=== PATIENT | male | born 1950 | race Caucasian/White ===

== ENCOUNTER 2017-11-08 10:20 | Inpatient (IN) | payer OTHER ==
[~2017-11-08] VITALS: Ht 167.6 cm; Wt 73.5 kg
[~2017-11-08 10:20] MED LIST: DIGOXIN125 MCG PO; METOPROLOL TART25 MG PO; OMEPRAZOLE40 MG PO; RANITIDINE HCL300 MG PO; XARELTO20 MG PO
[2017-11-08] MEDS ORDERED: TRAZODONE HCL50 MG PO (10:38)
[2017-11-08] MEDS ORDERED: METOPROLOL TARTRATE 50 MG TAB PO STA (10:41)
[2017-11-08] MEDS ORDERED: SODIUM CHLORIDE 0.9% 1000ML 1,000 ML IV STA ×2 (10:41)
[2017-11-08] MEDS ORDERED: FAMOTIDINE 20 MG/2 ML VIAL IV STA (10:41)
[2017-11-08] MEDS ORDERED: SODIUM CHLORIDE 0.9% 1000ML 1,000 ML IV ONE (10:45)
[2017-11-08] MEDS ORDERED: METOPROLOL TARTRATE INJ 1 MG/ML VIAL IV ONE ×2 (10:45)
[2017-11-08 10:57] LABS: BASOPHILS # (AUTO) 0.1 (0.0-0.1); BASOPHILS % 0.7 % (0.0-1.0); EOSINOPHILS # (AUTO) 0.1 (0.0-0.4); EOSINOPHILS % 1.3 % (0.0-6.0); HEMATOCRIT 49.4 % (38.2-49.6); HEMOGLOBIN 16.9 g/dL (14.0-18.0); LYMPHOCYTES # (AUTO) 3.6 (1.0-3.2); LYMPHOCYTES % 33.5 % (18.0-39.1); MEAN CORPUSCULAR HEMOGLOBIN 30.8 pg (28-32); MEAN CORPUSCULAR HGB CONC 34.2 g/dL (31-35); MEAN CORPUSCULAR VOLUME 90.1 fL (81-99); MONOCYTES # (AUTO) 0.8 (0.2-0.8); MONOCYTES % 7.2 % (4.4-11.3); NEUTROPHILS # (AUTO) 6.1 (2.1-6.9); PLATELET COUNT 277 x10e3/uL (140-360); RED BLOOD COUNT 5.48 x10e6/uL (4.3-5.7); RED CELL DISTRIBUTION WIDTH 12.1 % (11.7-14.4)
[2017-11-08 11:10] LABS: INR 1.37; PROTHROMBIN TIME 17.6 seconds (11.9-14.5)
--- NOTE | 2017-11-08 11:11 | Diagnostic Imaging Report ---
PROCEDURE: A single AP view of the chest. COMPARISON: Chest PA 05/23/2017. INDICATIONS: CHEST PAIN FINDINGS: Lines/tubes: None. Lungs: The lungs are well inflated and clear. There is no evidence of pneumonia or pulmonary edema. Pleura: There is no pleural effusion or pneumothorax. Heart and mediastinum: The heart and the mediastinum are unremarkable. Bones: No acute bony abnormality. Degenerative changes of the thoracic spine. IMPRESSION: No acute radiographic abnormality. Dictated by: Carlos Alberto Peck M.D. on 11/08/2017 at 11:20 Electronically approved by: Carlos Alberto Peck M.D. on 11/08/2017 at 11:20
[2017-11-08] MEDS ORDERED: AMIODARONE 900MG 500 ML IV ONE (11:12)
[2017-11-08] MEDS ORDERED: AMIODARONE HCL 900 MG in DEXTROSE 5 % 500ML BOTTLE 482 ML IV SCH (11:15)
[2017-11-08] MEDS ORDERED: AMIODARONE HCL 150 MG/100 ML BAG IV ONE (11:15)
[2017-11-08] MEDS ORDERED: DIGOXIN 0.125 MG TAB PO SCH (11:15)
[2017-11-08] MEDS ORDERED: MORPHINE SULFATE 2 MG/ML SYR IV PRN (11:15)
[2017-11-08] MEDS ORDERED: ONDANSETRON HCL INJ 2 MG/ML VIAL IV PRN (11:15)
[2017-11-08 11:18] LABS: ALANINE AMINOTRANSFERASE 18 IU/L (0-55); ALKALINE PHOSPHATASE 67 IU/L (40-150); ANION GAP 12.5 mmol/L (8-16); BLOOD UREA NITROGEN 14 mg/dL (7-26); BUN/CREATININE RATIO 12 (6-25); CALCIUM 9.3 mg/dL (8.4-10.2); CARBON DIOXIDE 27 mmol/L (22-29); CHLORIDE 104 mmol/L (98-107); CREATINE KINASE 66 IU/L (30-200); CREATININE, SERUM 1.15 mg/dL (0.72-1.25); EST GLOMERULAR FILTRATION RATE > 60 ML/MIN (60-); GLUCOSE 150 mg/dL (74-118); LIPASE 34 U/L (8-78); MAGNESIUM 2.1 MG/DL (1.3-2.1); POTASSIUM 3.5 mmol/L (3.5-5.1); SODIUM 140 mmol/L (136-145)
[2017-11-08 11:38] LABS: DIGOXIN 0.57 ng/mL (0.8-2.0); THYROID STIMULATING HORMONE 1.558 uIU/mL (0.350-4.940); TROPONIN I 0.004 ng/mL (0-0.300)
[2017-11-08] MEDS: FAMOTIDINE 20 MG/2 ML VIAL IV SCH ×2 (11:52→22:47)
[2017-11-08] MEDS: AMIODARONE HCL 900 MG in DEXTROSE 5 % 500ML BOTTLE 482 ML IV SCH (11:57)
[2017-11-08 12:17] LABS: BILIRUBIN,URINE NEGATIVE (NEGATIVE); CLARITY,URINE CLEAR (CLEAR); COLOR,URINE YELLOW (YELLOW); KETONES,URINE NEGATIVE (NEGATIVE); LEUKOCYTE ESTERASE ,URINE TRACE (NEGATIVE); NITRITE,URINE NEGATIVE (NEGATIVE); PROTEIN,URINE DIPSTICK NEGATIVE (NEGATIVE); URINE UROBILINOGEN 0.2 mg/dL (0.2 - 1)
[2017-11-08 12:55] LABS: EPITHELIAL CELLS,URINE RARE /LPF
[2017-11-08] MEDS: METOPROLOL TARTRATE 25 MG TAB PO SCH ×2 (13:02→22:47)
--- NOTE | 2017-11-08 15:57 | Consultation ---
DATE OF CONSULTATION: November 08, 2017 REASON FOR ADMISSION: Atrial fibrillation with rapid ventricular response. HISTORY OF PRESENT ILLNESS: This is a 66-year-old male who presented with chest pain. According to the patient, this morning he started having chest pain that started from the left side with no radiation. He took 2 nitroglycerin and it did not get better, and so he decided to come in for evaluation. He also complained of lightheadedness. In the ER, he was found to be in atrial fibrillation with rapid ventricular response and he was admitted for evaluation and started on amiodarone drip. He has a history of paroxysmal atrial fibrillation. He was anticoagulated with Xarelto. He denies any dizziness, any diaphoresis or headache. PAST MEDICAL HISTORY: Hypertension, atrial fibrillation, GERD. PAST SURGICAL HISTORY: Hernia repair, left ear surgery and cleft palate surgery. FAMILY HISTORY: Noncontributory. SOCIAL HISTORY: No smoking, no drinking. He lives at home alone by himself. MEDICATIONS: Metoprolol, omeprazole, digoxin and Xarelto. ALLERGIES: NO KNOWN DRUG ALLERGIES. REVIEW OF SYSTEMS: Negative except as mentioned above. Positive for atrial fibrillation, but he converted back to normal sinus rhythm. PHYSICAL EXAMINATION VITAL SIGNS: Temperature 98, heart rate 80, blood pressure 124/75. Oxygen saturation 98% on 3 liters nasal cannula. GENERAL: He is awake, alert and oriented x3. HEENT: Mucous membrane moist. NECK: Supple. LUNGS: Bilaterally clear to auscultation. CARDIOVASCULAR: Irregularly irregular. ABDOMEN: Soft. NEUROLOGIC: Intact. EXTREMITIES: With no edema. LABORATORY DATA: Sodium 140, potassium 3.5, chloride 104, CO2 of 27, BUN 14, creatinine 1.15, glucose 150, white blood cells 7.7, hemoglobin 16.9, hematocrit 49.4, platelets 277,000, PT 17.6, PTT 33.0. INR 1.37. IMPRESSION 1. Chest pain. 2. Atrial fibrillation with rapid ventricular response converted to normal sinus rhythm. 3. Hypertension. 4. Gastroesophageal reflux disease. PLAN: Will get an echo to assess the LV and the valve function. Will get serial cardiac enzymes. He is on amiodarone drip. Will continue the same. Will restart his home Xarelto back and metoprolol. Check his TSH. Replace his potassium. Further cardiac workup pending clinical course. Thank you for this consultation. Dictated by Karina Katz NP Job#: [id number]
[2017-11-08 21:00] VITALS: BP 129/66
[2017-11-08] MEDS: TRAZODONE HCL 50 MG TAB PO SCH (22:47)
[2017-11-08 22:48] LABS: CREATINE KINASE MB 1.7 ng/mL (0.00-5.00); TROPONIN I 0.008 ng/mL (0-0.300)
[2017-11-09] VITALS (8 sets, daily range): BP systolic 94–129; BP diastolic 52–83
[2017-11-09 06:44] LABS: BASOPHILS # (AUTO) 0.1 (0.0-0.1); BASOPHILS % 0.6 % (0.0-1.0); EOSINOPHILS # (AUTO) 0.2 (0.0-0.4); EOSINOPHILS % 1.9 % (0.0-6.0); HEMOGLOBIN 13.5 g/dL (14.0-18.0); LYMPHOCYTES # (AUTO) 1.9 (1.0-3.2); LYMPHOCYTES % 22.4 % (18.0-39.1); MEAN CORPUSCULAR HEMOGLOBIN 30.7 pg (28-32); MEAN CORPUSCULAR HGB CONC 33.8 g/dL (31-35); MEAN CORPUSCULAR VOLUME 90.9 fL (81-99); MONOCYTES # (AUTO) 0.7 (0.2-0.8); MONOCYTES % 8.6 % (4.4-11.3); NEUTROPHILS # (AUTO) 5.4 (2.1-6.9); PLATELET COUNT 217 x10e3/uL (140-360); RED CELL DISTRIBUTION WIDTH 12.3 % (11.7-14.4)
[2017-11-09 07:11] LABS: CREATINE KINASE MB 1.5 ng/mL (0.00-5.00); TROPONIN I 0.017 ng/mL (0-0.300)
[2017-11-09 07:15] LABS: ALANINE AMINOTRANSFERASE 12 IU/L (0-55); ALBUMIN 2.9 g/dL (3.5-5.0); ALKALINE PHOSPHATASE 48 IU/L (40-150); ANION GAP 9.9 mmol/L (8-16); BLOOD UREA NITROGEN 13 mg/dL (7-26); BUN/CREATININE RATIO 15 (6-25); CALCIUM 8.1 mg/dL (8.4-10.2); CARBON DIOXIDE 23 mmol/L (22-29); CHLORIDE 111 mmol/L (98-107); CHOL/HDL RATIO 3.9 (3.9-4.7); CHOLESTEROL 122 MD/DL (0-199); CREATININE, SERUM 0.85 mg/dL (0.72-1.25); EST GLOMERULAR FILTRATION RATE > 60 ML/MIN (60-); GLUCOSE 99 mg/dL (74-118); HDL CHOLESTEROL 31 MG/DL (40-60); LDL CHOLESTEROL 76 MG/DL (60-130); MAGNESIUM 1.8 MG/DL (1.3-2.1); POTASSIUM 3.9 mmol/L (3.5-5.1); SODIUM 140 mmol/L (136-145); TRIGLYCERIDES 75 MG/DL (0-149)
[2017-11-09] MEDS: RIVAROXABAN 20 MG TABLET PO SCH (09:36)
[2017-11-09] MEDS: PANTOPRAZOLE SOD 40 MG TABEC PO SCH (09:36)
[2017-11-09] MEDS: AMIODARONE HCL 900 MG in DEXTROSE 5 % 500ML BOTTLE 482 ML IV SCH ×2 (12:30→14:01)
[2017-11-09] MEDS ORDERED: FUROSEMIDE INJ 10 MG/ML 2 ML VIAL IV ONE (13:00)
[2017-11-09] MEDS ORDERED: POTASSIUM CHLORIDE 10 MEQ TABCR PO ONE (13:00)
--- NOTE | 2017-11-09 13:04 | History and Physical ---
CHIEF COMPLAINT: Rapid ventricular rate with atrial fibrillation. HISTORY OF PRESENT ILLNESS: The patient is a 66-year-old male, presented with chest pain and increase in heart rate. His heart rate was over 200. The patient had a history of atrial fibrillation in the past, but for some reason his heart rate was very rapid on this admission. He did miss some doses of digoxin, however. Otherwise the patient was stable. Symptoms of atrial fibrillation including palpitation and lightheadedness and some chest discomfort, but otherwise there was no acute cardiac event such as unstable angina. PAST MEDICAL HISTORY: Reflux, atrial fibrillation, hypertension. PAST SURGICAL HISTORY: Inguinal hernia repair, left ear surgery, and cleft palate surgery. SOCIAL HISTORY: Patient does not smoke. He lives at home by himself. No alcohol consumption. No recreational drug use. ALLERGIES: TO NO KNOWN ALLERGIES. HOME MEDICATIONS: List is reviewed. Metoprolol, omeprazole, digoxin, Xarelto. PHYSICAL EXAMINATION: VITAL SIGNS: Temperature is 98. Blood pressure 124/79. Pulse rate 68. Respiration 18. GENERAL: The patient is not in acute distress. He is awake. HEENT: Normocephalic, atraumatic. Sclerae anicteric. NECK: Supple grossly. PULMONARY: Diminished breath sounds without any wheezing. CARDIOVASCULAR: Regular rate and rhythm now after starting on amiodarone. EXTREMITIES: No cyanosis or edema. NEUROLOGIC: No focal deficit. LABORATORY: Sodium is 140, potassium 3.9, chloride 111, bicarb 23, BUN 13, creatinine 0.8. Glucose 99. WBC is 8.2. Hemoglobin 13.5. Hematocrit 40. Platelets are 217. IMPRESSION: 1. Atrial fibrillation with rapid ventricular rate. 2. Amiodarone loading dosing. PLAN: Continue with home medication. Lasix times one dose because the patient did receive some IV fluid. Continue with current medication. Beta husam. Resume Xarelto. Will monitor the patient closely. Job#: [id number]
[2017-11-09] MEDS: METOPROLOL TARTRATE 25 MG TAB PO SCH ×2 (14:05→23:49)
[2017-11-09] MEDS: TRAZODONE HCL 50 MG TAB PO SCH (19:39)
[2017-11-10 03:47] VITALS: BP 130/74
[2017-11-10 07:21] VITALS: BP 116/75
[2017-11-10 08:25] LABS: ANION GAP 11.8 mmol/L (8-16); BLOOD UREA NITROGEN 15 mg/dL (7-26); BUN/CREATININE RATIO 17 (6-25); CALCIUM 8.3 mg/dL (8.4-10.2); CARBON DIOXIDE 23 mmol/L (22-29); CHLORIDE 108 mmol/L (98-107); EST GLOMERULAR FILTRATION RATE > 60 ML/MIN (60-); GLUCOSE 158 mg/dL (74-118); POTASSIUM 3.8 mmol/L (3.5-5.1); SODIUM 139 mmol/L (136-145)
[2017-11-10] MEDS: RIVAROXABAN 20 MG TABLET PO SCH (08:56)
[2017-11-10] MEDS: PANTOPRAZOLE SOD 40 MG TABEC PO SCH (08:56)
== END 2017-11-10 10:15 | disposition home or self-care (01) | DRG 310 ==
LOC: ER 10:20 → ERHOLD 11:19 → IMCU 20:34
PROVIDERS: ADMIT Internal Medicine; ATTEND Internal Medicine
DX: I48.0 Paroxysmal atrial fibrillation (principal); I10 Essential (primary) hypertension; K21.9 Gastro-esophageal reflux disease without esophagitis; Z79.01 Long term (current) use of anticoagulants
CPT/HCPCS: 36415; 71010; 80048; 80053; 80061; 80162; 81001; 82550; 82553; 83690; 83735; 83880; 84443; 84484; 85025; 85610; 85730; 87086; 93005; 93306; 99284; J1940; J7030

== ENCOUNTER 2019-03-02 07:11 | Emergency (ER) | payer OTHER ==
[~2019-03-02] VITALS: Ht 167.6 cm; Wt 68.9 kg
[~2019-03-02 07:11] MED LIST changes: +TRAZODONE HCL50 MG PO
--- OUTSIDE RECORDS SUMMARY | 2019-03-02 07:13 | XMS REPORT ---
Author [facility] Address Unknown Phone Unavailable Care Team Providers Care Program Professional Name Role Phone BATOOL AMY Unavailable Unavailable Problems This patient has no known problems. Allergies, Adverse Reactions, Alerts This patient has no known allergies or adverse reactions. Medications This patient has no known medications. Results Test Description Test Time Test Comments Text Results Atomic Results Result Comments CHEST SINGLE (PORTABLE) [place] [address] Patient Name: LALO MARTINEZ III MR #: [id number] : 1950 Age/Sex: 66/M [id number] Req #: [id number] Adm Physician: Ordered by: AMY RENAE MD, MD Report #: [id number] Location: ER Room/Bed: Procedure: [id number] DX/CHEST SINGLE (PORTABLE) Exam Date: 11/08/17 Exam Time: 1045 REPORT STATUS: Signed PROCEDURE: A single AP view of the chest. COMPARISON: Chest PA 05/23/2017. INDICATIONS: CHEST PAIN FINDINGS: Lines/tubes: None. Lungs: The lungs are well inflated and clear. There is no evidence of pneumonia or pulmonary edema. Pleura: There is no pleural effusion or pneumothorax. Heart and mediastinum: The heart and the mediastinum are unremarkable. Bones: No acute bony abnormality. Degenerative changes of the thoracic spine. IMPRESSION: No acute radiographic abnormality. Dictated by: Julian Zurita M.D. on 11/08/2017 at 11:20 Electronically approved by: Julian Zurita M.D. on 11/08/2017 at 11:20 Dictated By: JULIAN ZURITA MD 112 Transcribed By: [place] on 11/08/171119 COPY TO: AMY RENAE
[2019-03-02] MEDS ORDERED: SODIUM CHLORIDE 0.9% 1000ML 1,000 ML IV STA (07:50)
[2019-03-02] MEDS ORDERED: METOPROLOL TARTRATE INJ 1 MG/ML VIAL ONE (08:06)
--- NOTE | 2019-03-02 08:06 | NUR ---
Patient noted to have converted into NSR and then back into a fib with rvr. Per Dr. Frost, hold off on IV metoprolol at this time.
[2019-03-02] MEDS ORDERED: DIGOXIN INJ 0.25 MG/ML 2 ML AMP ONE (08:13)
[2019-03-02 08:34] LABS: BASOPHILS # (AUTO) 0.1 (0.0-0.1); BASOPHILS % 0.4 % (0.0-1.0); EOSINOPHILS # (AUTO) 0.1 (0.0-0.4); EOSINOPHILS % 0.5 % (0.0-6.0); HEMATOCRIT 42.8 % (38.2-49.6); LYMPHOCYTES # (AUTO) 2.1 (1.0-3.2); LYMPHOCYTES % 16.5 % (18.0-39.1); MEAN CORPUSCULAR HEMOGLOBIN 29.7 pg (28-32); MEAN CORPUSCULAR HGB CONC 32.7 g/dL (31-35); MEAN CORPUSCULAR VOLUME 90.7 fL (81-99); MONOCYTES # (AUTO) 0.6 (0.2-0.8); MONOCYTES % 4.4 % (4.4-11.3); NEUTROPHILS # (AUTO) 9.8 (2.1-6.9); NEUTROPHILS % 77.9 % (38.7-80.0); PLATELET COUNT 272 x10e3/uL (140-360); RED BLOOD COUNT 4.72 x10e6/uL (4.3-5.7); RED CELL DISTRIBUTION WIDTH 12.2 % (11.7-14.4)
[2019-03-02 08:49] LABS: INR 0.96; PROTHROMBIN TIME 13.3 seconds (11.9-14.5)
[2019-03-02 08:50] LABS: PARTIAL THROMBOPLASTIN TIME 29.7 seconds (23.8-35.5)
--- NOTE | 2019-03-02 08:57 | Diagnostic Imaging Report ---
EXAMINATION: CHEST SINGLE (PORTABLE) INDICATION: Shortness of breath. COMPARISON: None FINDINGS: TUBES and LINES: None. LUNGS: Lungs are well inflated. Lungs are clear. There is no evidence of pneumonia or pulmonary edema. PLEURA: No pleural effusion or pneumothorax. HEART AND MEDIASTINUM: The cardiomediastinal silhouette is unremarkable. BONES AND SOFT TISSUES: No acute osseous abnormality. Partially seen possible posttraumatic deformity of the distal clavicle. UPPER ABDOMEN: No free air under the diaphragm. IMPRESSION: No acute radiographic abnormality. Signed by: Dr. Tasia Turpin MD on 03/02/2019 8:53 AM
[2019-03-02 08:58] LABS: ANION GAP 11.1 mmol/L (8-16); BLOOD UREA NITROGEN 17 mg/dL (7-26); BUN/CREATININE RATIO 18 (6-25); CALCIUM 8.9 mg/dL (8.4-10.2); CARBON DIOXIDE 23 mmol/L (22-29); CHLORIDE 106 mmol/L (98-107); CREATINE KINASE 76 IU/L (30-200); CREATININE, SERUM 0.93 mg/dL (0.72-1.25); EST GLOMERULAR FILTRATION RATE > 60 ML/MIN (60-); GLUCOSE 115 mg/dL (74-118); POTASSIUM 4.1 mmol/L (3.5-5.1); SODIUM 136 mmol/L (136-145)
[2019-03-02] MEDS ORDERED: METOPROLOL TARTRATE INJ 1 MG/ML VIAL IV ONE (09:00)
[2019-03-02] MEDS ORDERED: DIGOXIN INJ 0.25 MG/ML 2 ML AMP IV ONE ×2 (09:00)
[2019-03-02 10:07] LABS: CLARITY,URINE TURBID (CLEAR); COLOR,URINE RED (YELLOW); LEUKOCYTE ESTERASE ,URINE 1+ (NEGATIVE); NITRITE,URINE POSITIVE (NEGATIVE)
[2019-03-02 10:08] LABS: BILIRUBIN,URINE 3+ (NEGATIVE); KETONES,URINE 1+ (NEGATIVE); PROTEIN,URINE DIPSTICK 3+ (NEGATIVE); URINE UROBILINOGEN 4 mg/dL (0.2 - 1)
[2019-03-02 10:14] LABS: BACTERIA,URINE MODERATE /HPF; EPITHELIAL CELLS,URINE RARE /LPF; RBC,URINE >50 /HPF (0-5)
--- NOTE | 2019-03-02 10:19 | NUR ---
Patient noted ot have converted into NSR. EKG performed and MD notified.
[2019-03-02] MEDS ORDERED: SODIUM CHLORIDE 0.9% 1000ML 1,000 ML IV SCH (11:00)
[2019-03-02] MEDS ORDERED: SODIUM CHLORIDE 0.9% 250ML 250 ML ONE (11:06)
[2019-03-02] MEDS ORDERED: IOPAMIDOL 370 MG/ML 200 ML INFUS..BTL INJ ONE (11:06)
--- NOTE | 2019-03-02 11:09 | NUR ---
Walking rounds with LATESHA Dee. Patient in no distress at this time.
--- NOTE | 2019-03-02 11:09 | NUR ---
rec'd report in walking rounds with aba lock
[2019-03-02] MEDS ORDERED: CEFTRIAXONE SOD 1 GM/NS 50 ML 50 ML IV ONE (11:30)
--- NOTE | 2019-03-02 13:06 | Diagnostic Imaging Report ---
EXAM: CT abdomen and pelvis without and with contrast - Hematuria protocol INDICATION: Gross hematuria. COMPARISON: None. TECHNIQUE: Abdomen and pelvis were scanned in prone position without and with contrast. Delayed phase imaging obtained. Coronal and sagittal reformations were obtained. Hematuria protocol was performed. IV CONTRAST: 150 cc of Isovue-370. RADIATION DOSE: Total DLP: 917.4 mGy*cm Dose modulation, iterative reconstruction, and/or weight based adjustment of the mA/kV was utilized to reduce the radiation dose to as low as reasonably achievable. FINDINGS: LINES and TUBES: None. LOWER THORAX: Scattered bilateral lower lobe cysts. HEPATOBILIARY: Multiple hepatic cysts. Multiple other subcentimeter hepatic lesions are too small to characterize, but likely represent cysts. No evidence of solid mass. No biliary ductal dilation. GALLBLADDER: No radio-opaque stones or sludge. No wall thickening. SPLEEN: No splenomegaly. Calcified splenic granuloma. PANCREAS: No focal masses or ductal dilatation. ADRENALS: No adrenal nodules KIDNEYS/URETERS: Kidneys enhance symmetrically. No right hydronephrosis or solid mass. Subcentimeter right renal hypodensities are too small to characterize, but likely represent cysts. There is mild left hydroureter and left pelviectasis. Minimal left hydronephrosis. There is a 5 mm right mid pole nonobstructing stone and a 1 mm nonobstructing right lower pole stone. Possible 1 mm left mid pole nonobstructing stones on series 3, image 70. The majority of the ureters are opacified and demonstrate no specific evidence of urothelial lesion. GI TRACT: No abnormal distention, wall thickening, or evidence of bowel obstruction. Appendix is unremarkable. Small hiatal hernia. PELVIS: The bladder is distended. There is a large left sided bladder diverticulum, measuring up to 10.8 x 6.3 x 11.2 cm (AP x TV x SI). The diverticulum displaces the left ureter without evidence of high-grade obstruction. There is hyperdense contents representing hemorrhage versus lesion along the anterior aspect of the left lateral diverticulum, for example measuring up to 4.8 x 2.6 x 7.5 cm (series 3, image 130 and coronal series 401, image 33; 53 HU). The bladder is not well opacified on delayed images which limits evaluation for underlying mass. The prostate is enlarged, measuring up to 5.2 x 3.6 x 4.1 cm, estimated prostate volume based on ellipsoid calculation of 40 cc, although evaluation is limited on CT. LYMPH NODES: No lymphadenopathy. VESSELS: There are scattered atherosclerotic calcifications in the aorta and branch vessels. The bladder diverticulum and bladder result in compression of the left common iliac vein and bilateral external iliac veins. There are prominent internal iliac vein collaterals, for example on series 6, image 174. PERITONEUM / RETROPERITONEUM: No free air or fluid. BONES AND SOFT TISSUES: No acute bony findings or suspicious lytic or blastic lesions. Mild age-indeterminate anterior wedge compression deformity of the T11 vertebral body. IMPRESSION: Large left bladder diverticulum with hyperdense contents along the anterior aspect, which likely represent hemorrhagic products. However the bladder is not well opacified on delayed images, therefore underlying mass cannot be excluded. Suggest cystoscopy for further evaluation. The bladder diverticulum displaces the left ureter without evidence of high-grade obstruction. Mild left hydroureter and pelviectasis. Minimal left hydronephrosis. The bladder diverticulum and distended bladder result in compression of the left common iliac vein and bilateral external iliac veins. There are prominent internal iliac vein collaterals. Prostatomegaly. Suggest clinical correlation for bladder outlet obstruction. Nonobstructing bilateral renal stones, measuring up to 5 mm in the right mid pole. Mild age indeterminant anterior wedge compression deformity of the T11 vertebral body. Signed by: Dr. Tasia Turpin MD on 03/02/2019 1:03 PM
== END 2019-03-02 17:04 | disposition home or self-care (01) ==
LOC: ER 07:11
DX: R31.9 Hematuria, unspecified (principal); N30.91 Cystitis, unspecified with hematuria; I48.0 Paroxysmal atrial fibrillation; I10 Essential (primary) hypertension; I48.91 Unspecified atrial fibrillation
CPT/HCPCS: 36415; 71045; 74178; 80048; 81001; 82550; 82553; 83880; 84484; 85025; 85610; 85730; 87086; 93005; 99284; J0696; J1160; J7030; J7050; Q9967

== ENCOUNTER 2019-03-12 09:22 | Inpatient (IN) | payer OTHER ==
[~2019-03-12] VITALS: Ht 167.6 cm; Wt 71.7 kg
[2019-03-12] MEDS ORDERED: ADENOSINE 6MG/2ML 2 ML ONE (09:36)
[2019-03-12] MEDS ORDERED: SODIUM CHLORIDE 0.9% 1000ML 1,000 ML ONE (09:37)
[2019-03-12] MEDS ORDERED: ADENOSINE 6MG/2ML 3 ML ONE (09:42)
[2019-03-12] MEDS ORDERED: DILTIAZEM HCL VIAL 5 ML ONE (09:47)
[2019-03-12] MEDS ORDERED: DILTIAZEM HCL 5 MG/ML 5 ML VIAL IV STA (09:56)
[2019-03-12] MEDS ORDERED: SODIUM CHLORIDE 0.9% 1000ML 1,000 ML IV ONE (10:00)
[2019-03-12] MEDS ORDERED: ADENOSINE 6 MG/2 ML VIAL IV ONE (10:00)
--- NOTE | 2019-03-12 10:17 | Diagnostic Imaging Report ---
EXAMINATION: CHEST SINGLE (PORTABLE) INDICATION: Chest pain. COMPARISON: Chest radiograph 03/02/2019. FINDINGS: TUBES and LINES: None. LUNGS: Lungs are well inflated. Lungs are clear. There is no evidence of pneumonia or pulmonary edema. PLEURA: No pleural effusion or pneumothorax. HEART AND MEDIASTINUM: The cardiomediastinal silhouette is unremarkable. BONES AND SOFT TISSUES: No acute osseous abnormality. UPPER ABDOMEN: No free air under the diaphragm. IMPRESSION: No acute radiographic abnormality. Signed by: Dr. Tasia Turpin MD on 03/12/2019 10:14 AM
--- NOTE | 2019-03-12 10:24 | NUR ---
Patient states he feels much better at this time. NSR noted on monitor.
[2019-03-12 10:37] LABS: INR 0.89; PARTIAL THROMBOPLASTIN TIME 26.6 seconds (23.8-35.5); PROTHROMBIN TIME 12.5 seconds (11.9-14.5)
[2019-03-12 10:44] LABS: BASOPHILS # (AUTO) 0.1 (0.0-0.1); BASOPHILS % 0.7 % (0.0-1.0); EOSINOPHILS # (AUTO) 0.1 (0.0-0.4); EOSINOPHILS % 0.9 % (0.0-6.0); HEMATOCRIT 42.6 % (38.2-49.6); HEMOGLOBIN 13.7 g/dL (14.0-18.0); LYMPHOCYTES # (AUTO) 2.7 (1.0-3.2); LYMPHOCYTES % 26.4 % (18.0-39.1); MEAN CORPUSCULAR HEMOGLOBIN 29.6 pg (28-32); MEAN CORPUSCULAR HGB CONC 32.2 g/dL (31-35); MONOCYTES # (AUTO) 0.7 (0.2-0.8); MONOCYTES % 6.7 % (4.4-11.3); NEUTROPHILS # (AUTO) 6.7 (2.1-6.9); PLATELET COUNT 390 x10e3/uL (140-360); RED BLOOD COUNT 4.63 x10e6/uL (4.3-5.7); RED CELL DISTRIBUTION WIDTH 12.4 % (11.7-14.4)
[2019-03-12 10:49] LABS: ALANINE AMINOTRANSFERASE 14 IU/L (0-55); ALBUMIN 3.9 g/dL (3.5-5.0); ALBUMIN/GLOBULIN RATIO 1.1 (0.8-2.0); ALKALINE PHOSPHATASE 72 IU/L (40-150); ANION GAP 11.8 mmol/L (8-16); BLOOD UREA NITROGEN 14 mg/dL (7-26); BUN/CREATININE RATIO 12 (6-25); CALCIUM 9.5 mg/dL (8.4-10.2); CARBON DIOXIDE 24 mmol/L (22-29); CHLORIDE 107 mmol/L (98-107); CREATINE KINASE 81 IU/L (30-200); CREATININE, SERUM 1.14 mg/dL (0.72-1.25); EST GLOMERULAR FILTRATION RATE > 60 ML/MIN (60-); GLUCOSE 166 mg/dL (74-118); POTASSIUM 3.8 mmol/L (3.5-5.1); SODIUM 139 mmol/L (136-145)
[2019-03-12 11:26] LABS: BILIRUBIN,URINE NEGATIVE (NEGATIVE); CLARITY,URINE SL CLOUDY (CLEAR); COLOR,URINE YELLOW (YELLOW); KETONES,URINE NEGATIVE (NEGATIVE); LEUKOCYTE ESTERASE ,URINE 1+ (NEGATIVE); NITRITE,URINE NEGATIVE (NEGATIVE); PROTEIN,URINE DIPSTICK NEGATIVE (NEGATIVE); URINE UROBILINOGEN 0.2 mg/dL (0.2 - 1)
[2019-03-12 11:43] LABS: BACTERIA,URINE FEW /HPF; EPITHELIAL CELLS,URINE FEW /LPF
[2019-03-12] MEDS: CEFTRIAXONE SOD 1 GM/NS 50 ML 50 ML IV SCH (12:31)
[2019-03-12 13:08] LABS: CHOL/HDL RATIO 2.8 (3.9-4.7); CHOLESTEROL 169 MD/DL (0-199); HDL CHOLESTEROL 60 MG/DL (40-60); LDL CHOLESTEROL 87 MG/DL (60-130); TRIGLYCERIDES 110 MG/DL (0-149)
[2019-03-12 13:28] LABS: THYROID STIMULATING HORMONE 1.101 uIU/mL (0.350-4.940)
[2019-03-12 13:30] LABS: DIGOXIN < 0.30 ng/mL (0.8-2.0)
[2019-03-12 16:56] VITALS: BP 139/76
[2019-03-12 17:00] VITALS: BP 139/76
[2019-03-12 17:30] VITALS: BP 139/76
[2019-03-12] MEDS: METOPROLOL TARTRATE 25 MG TAB PO SCH (17:52)
[2019-03-12] MEDS ORDERED: DILTIAZEM HCL 5 MG/ML 5 ML VIAL IV ONE (18:15)
[2019-03-12] MEDS ORDERED: AMIODARONE HCL 150MG 100 ML IV ONE (18:30)
[2019-03-12] MEDS ORDERED: AMIODARONE HCL 900 MG in DEXTROSE 5% 500ML 500 ML IV SCH (18:30)
[2019-03-12] MEDS ORDERED: PNEUMOCOCCAL VACCINE POLYVALENT 23 MCG/0.5 ML VIAL IM SCH (18:33)
--- NOTE | 2019-03-12 18:54 | Consultation ---
DATE OF CONSULTATION: REQUESTING PHYSICIAN: Dr. Briggs. REASON FOR CONSULT: Atrial fibrillation. HISTORY OF PRESENT ILLNESS: Mr. Trimble is a 68-year-old gentleman with past medical history as listed below, presented to the office with complaints of palpitations, fatigue, chest pain, and shortness of breath. For the last few days, the patient was noted to be in AFib with RVR. His heart rate was in the 170s. He was weak and tired. His blood pressure was borderline low and so he was sent to the emergency room. In the ER, the patient's heart rate was in the 180s. He was initially given adenosine and his heart rate slowed down eventually, he converted to sinus rhythm. His heart rate now is in the 60s and 70s on the monitor. The patient has a history of paroxysmal atrial fibrillation. He states he feels a lot better. He was recently in the ER with AFib with RVR, was given IV digoxin and then sent home. He also had hematuria and stopped taking his Xarelto couple of weeks back. He saw Dr. Riggins and has been scheduled to have some urological procedure. Reportedly, he was also told to have kidney stones. He states that the chest pain is intermittent, lasts 5 to 10 minutes, and nonradiating. He does get short of breath at rest and minimal exertion. No abdominal pain, vomiting, or diarrhea. REVIEW OF SYMPTOMS: CONSTITUTIONAL: He has some fatigue and weakness. HEENT: No headache, blurring of vision, seizure, or syncope. CARDIOVASCULAR: He has had chest pain, dyspnea, and palpitations. RESPIRATORY: No cough, fever, or expectoration. GI: No abdominal pain, vomiting, or diarrhea. : Has had hematuria. ALLERGIES: METHYLPREDNISOLONE. PAST MEDICAL HISTORY: 1. History of paroxysmal atrial fibrillation. 2. History of hypertension. 3. History of GERD. PAST SURGICAL HISTORY: History of left ear surgery, history of cleft palate surgery, and history of hernia repair. SOCIAL HISTORY: He does not smoke or drink. FAMILY HISTORY: Noncontributory. PHYSICAL EXAMINATION: GENERAL: Moderately built and nourished gentleman. Awake, alert, not in any obvious distress. VITAL SIGNS: Heart rate currently is in the 60s on the monitor. Blood pressure 130/62, respiratory rate 18. HEENT: Atraumatic. NECK: No JVD, bruit, thyromegaly, or lymphadenopathy. CARDIOVASCULAR: First and second heart sounds heard. No murmurs, rubs, or gallops appreciated. CHEST: Decreased air entry at the bases. No adventitious sounds appreciated. ABDOMEN: Soft, nontender. EXTREMITIES: No edema. LABS: WBC is 10.3, hemoglobin is 13.7, hematocrit 42.6, and platelets are 390. Sodium is 139, potassium 3.8, chloride is 107, bicarb is 24, BUN is 14, creatinine 1.1, glucose 166, AST 17, ALT is 14, alkaline phosphatase 72. Troponin less than 0.001. BNP is 270. IMAGING: Chest x-ray shows no acute radiographic abnormality. EKG shows atrial fibrillation at 181 beats per minute. Normal axis. Normal intervals. ST depression in I, II, aVL, III, aVF, and V3 to V6. IMPRESSION: 1. Atrial fibrillation with rapid ventricular rate. 2. History of hypertension. 3. History of gastroesophageal reflux disease. 4. History of hematuria. 5. History of nephrolithiasis. PLAN: 1. The patient is converted to sinus rhythm. His heart rate is under control. 2. We will start him on beta-blockers. 3. The patient's H and H is okay. We will put him on Lovenox. We will hold off on Xarelto for now. Pending any surgical procedures and if no surgical procedure is planned, we will restart him back on his Xarelto. 4. Get echocardiogram to assess LV function and valvular function. 5. Check thyroid function test. 6. Further cardiac workup depending on clinical course. 7. Discussed my impression and plan of management with the patient and he understands. As always, I appreciate and thank you very much for referral. MD JOANNE Paulson/CHRISSYL /[id number]
[2019-03-12] MEDS ORDERED: AMIODARONE HCL 150 MG in DEXTROSE 5% 100ML 100 ML IV ONE (19:00)
[2019-03-12] MEDS ORDERED: AMIODARONE HCL 900 MG in DEXTROSE 5 % 500ML BOTTLE 500 ML IV SCH (19:00)
--- NOTE | 2019-03-12 19:15 | NUR ---
report given to oncoming nurse Deb.
--- NOTE | 2019-03-12 19:30 | NUR ---
report given to Arthur CHARLTON, pt will transfer to Room 197
--- NOTE | 2019-03-12 19:31 | NUR ---
per no urology procedure scheduled for 03/13/19 and does not need to be NPO from his stand point. Urology does not have plans to do any procedures until cardiology clears him and expecting this to be well over several weeks.
[2019-03-12 20:00] VITALS: BP 113/63
--- NOTE | 2019-03-12 20:17 | NUR ---
PT IS TRANSFERRED TO ICU .NO ACUTE DISTRESS NOTED . Addendum: 03/12/19 at 2130 by Kayla Childress RN WRONG
--- NOTE | 2019-03-12 20:30 | NUR ---
PT IS TRANSFERRED TO [facility] .NO ACUTE DISTRESS NOTED
[2019-03-12] MEDS ORDERED: ENOXAPARIN SOD INJ 60 MG/0.6 ML SYR SC SCH (21:00)
--- NOTE | 2019-03-12 21:00 | NUR ---
Patient transferred from [facility] floor, patient is alert and oriented x 4, patient is on room air, patient skin intact, patient walks, patient transferred to this unit to receive amiodorone, patient got to the unit and his heart rate was 66, and nsr, Dr. Norton was made aware and he stopped the intended drip.
[2019-03-13] VITALS (8 sets, daily range): BP systolic 108–135; BP diastolic 64–82
[2019-03-13 00:57] LABS: CREATINE KINASE MB 0.9 ng/mL (0-5.0)
[2019-03-13] MEDS ORDERED: AMIODARONE HCL 900 MG in DEXTROSE 5 % 500ML BOTTLE 500 ML IV ONE (01:00)
[2019-03-13 05:16] LABS: BASOPHILS # (AUTO) 0.1 (0.0-0.1); BASOPHILS % 0.8 % (0.0-1.0); EOSINOPHILS # (AUTO) 0.2 (0.0-0.4); EOSINOPHILS % 1.9 % (0.0-6.0); HEMATOCRIT 37.3 % (38.2-49.6); HEMOGLOBIN 12.3 g/dL (14.0-18.0); LYMPHOCYTES # (AUTO) 3.3 (1.0-3.2); LYMPHOCYTES % 31.5 % (18.0-39.1); MEAN CORPUSCULAR HEMOGLOBIN 29.9 pg (28-32); MEAN CORPUSCULAR VOLUME 90.8 fL (81-99); MONOCYTES % 9.5 % (4.4-11.3); NEUTROPHILS # (AUTO) 5.8 (2.1-6.9); PLATELET COUNT 312 x10e3/uL (140-360); RED BLOOD COUNT 4.11 x10e6/uL (4.3-5.7); RED CELL DISTRIBUTION WIDTH 12.5 % (11.7-14.4)
[2019-03-13 05:28] LABS: INR 1.01; PARTIAL THROMBOPLASTIN TIME 31.7 seconds (23.8-35.5); PROTHROMBIN TIME 13.8 seconds (11.9-14.5)
[2019-03-13 05:34] LABS: ANION GAP 14.1 mmol/L (8-16); BLOOD UREA NITROGEN 15 mg/dL (7-26); BUN/CREATININE RATIO 15 (6-25); CALCIUM 8.7 mg/dL (8.4-10.2); CARBON DIOXIDE 21 mmol/L (22-29); CHLORIDE 111 mmol/L (98-107); CREATININE, SERUM 0.97 mg/dL (0.72-1.25); EST GLOMERULAR FILTRATION RATE > 60 ML/MIN (60-); GLUCOSE 100 mg/dL (74-118); POTASSIUM 4.1 mmol/L (3.5-5.1); SODIUM 142 mmol/L (136-145)
--- NOTE | 2019-03-13 07:08 | NUR ---
patient endorsed to next shift for continuity of care.
[2019-03-13] MEDS: AMIODARONE HCL 200 MG TAB PO SCH ×2 (09:20→19:22)
[2019-03-13] MEDS: RIVAROXABAN 15 MG TABLET PO SCH (09:21)
[2019-03-13] MEDS: METOPROLOL TARTRATE 25 MG TAB PO SCH ×2 (09:22→19:21)
[2019-03-13] MEDS: CEFTRIAXONE SOD 1 GM/NS 50 ML 50 ML IV SCH (13:01)
[2019-03-13] MEDS ORDERED: CALCIUM CARBONATE 500 MG CHEWABLE TABS PO ONE (20:00)
--- NOTE | 2019-03-13 22:52 | Consultation ---
DATE OF CONSULTATION: 03/13/2019 Urologic consultation. Consultations called by Dr. Mazariegos. CHIEF UROLOGIC COMPLAINT/REASON FOR CONSULTATION: Hematuria. HISTORY OF PRESENT ILLNESS: The patient is admitted to the hospital with atrial fibrillation with rapid ventricular response. He has a history of gross hematuria and per report, the patient has seen Dr. Riggins in the past. Currently, there is no gross hematuria. The patient denied dysuria, denied frequency, denied urgency. PAST MEDICAL HISTORY: Atrial fibrillation, hypertension, gastroesophageal reflux disease, cleft palate, and hernia repairs. MEDICATIONS: Notable for Xarelto, metoprolol, Rocephin, and amiodarone. ALLERGIES: METHYLPREDNISOLONE. SOCIAL HISTORY: Denied smoking or drinking. FAMILY HISTORY: Denied urologic stones or malignancies. REVIEW OF SYSTEMS: Noncontributory other than problems mentioned above for 12 organ systems. PHYSICAL EXAMINATION: IN GENERAL: An elderly male currently, in no acute distress. VITAL SIGNS: Currently, he is afebrile with stable vital signs. HEENT: Sclerae anicteric. NECK: Supple. BACK: Without costovertebral angle tenderness bilaterally. ABDOMEN: Soft, nontender, and nondistended. There is no palpable mass. No palpable hernias. No palpable lymphadenopathy. GENITOURINARY: Normal male external genitalia. EXTREMITIES: No edema. NEUROLOGIC: Moves 4 extremities. PSYCH: Alert. Mood appropriate. SKIN: Intact. Normal color. PERTINENT LABORATORY DATA: CT scan revealing liver cysts, right kidney cyst, left-sided hydronephrosis. A 5 mm right middle pole stone, 1 mm right lower pole stone, 1 mm left middle pole stone, a very large 11 cm bladder diverticulum on the left side with hemorrhage in the cyst, BPH with measurements of 5.2 x 3.6 x 4.1 cm. Hemoglobin of 13, hematocrit 42, platelet count 390,000, and white blood cell count 10,300. Sodium 142, potassium 4.1, chloride 111, bicarb 21, BUN 15, creatinine 0.97, glucose 100. Urinalysis; 11-20 reds, 11-20 whites. IMPRESSION: 1. Gross hematuria. 2. BPH. 3. Hydronephrosis. 4. Renal cyst. 5. Bladder diverticulum. 6. Kidney stones. PLAN: The patient will need elective cystoscopy, which may safely be performed as an outpatient. Thank you for allowing us to participate in the care of patient. I will be happy to follow along with you. MD JULIANA Almaguer/MODL /[id number] cc: MD Kenyatta Smith MD
[2019-03-14] VITALS (8 sets, daily range): BP systolic 99–140; BP diastolic 63–90
[2019-03-14] MEDS: PANTOPRAZOLE SOD 40 MG TABEC PO SCH (05:19)
[2019-03-14] MEDS: RIVAROXABAN 15 MG TABLET PO SCH (10:03)
[2019-03-14] MEDS: AMIODARONE HCL 200 MG TAB PO SCH ×2 (10:03→17:22)
[2019-03-14] MEDS: METOPROLOL TARTRATE 25 MG TAB PO SCH ×2 (10:09→17:23)
--- NOTE | 2019-03-14 12:30 | NUR ---
Patient transferred to room 295 handoff report called to nurse Andersen RN, made aware urology will do cystoscopy/retrograde as outpatient procedure per Dr. Jeffy Zapata's note. Also made aware Rocephin 12:15 dose needs to be administered, nurse verbalized understanding.
[2019-03-14] MEDS ORDERED: SODIUM CHLORIDE 0.9% 250ML 250 ML ONE (12:35)
[2019-03-14] MEDS: CEFTRIAXONE SOD 1 GM/NS 50 ML 50 ML IV SCH (12:53)
--- NOTE | 2019-03-14 19:15 | NUR ---
Bedside rounds completed with morning nurse. Pt alert and orient to name. Lying in bed HOB 30 degrees. Denies pain at this time. Call arce within reach. Bed low and locked. Will continue to monitor.
[2019-03-15] VITALS (7 sets, daily range): BP systolic 101–142; BP diastolic 55–66
[2019-03-15] MEDS: PANTOPRAZOLE SOD 40 MG TABEC PO SCH (08:39)
[2019-03-15] MEDS: AMIODARONE HCL 200 MG TAB PO SCH ×2 (08:39→17:19)
[2019-03-15] MEDS: RIVAROXABAN 15 MG TABLET PO SCH (08:40)
[2019-03-15] MEDS: METOPROLOL TARTRATE 25 MG TAB PO SCH ×2 (08:40→17:20)
[2019-03-15] MEDS ORDERED: PNEUMOCOCCAL VACCINE POLYVALENT 23 MCG/0.5 ML VIAL IM ONE (12:30)
[2019-03-15] MEDS: CEFTRIAXONE SOD 1 GM/NS 50 ML 50 ML IV SCH (12:43)
[2019-03-15] MEDS ORDERED: TRIAMCINOLONE ACET 0.025% 15 GM CREAM TP SCH (18:00)
--- NOTE | 2019-03-15 19:20 | NUR ---
Completed bedside rounds with morning nurse. Pt alert and orient to name. Lying in bed. Denies pain at this time. Call arce within reach. Bed low and locked. Will continue to monitor.
[2019-03-16] VITALS: BP 111/60
[2019-03-16 04:00] VITALS: BP 118/67
--- NOTE | 2019-03-16 07:06 | NUR ---
RECEIVED PATIENT RESTING IN BED. NO ACUTE DISTRESS NOTED. CALL LIGHT WITHIN REACH. BED IN THE LOWEST POSITION.
[2019-03-16 07:15] VITALS: BP 131/65
[2019-03-16 07:59] VITALS: BP 131/65
[2019-03-16] MEDS: RIVAROXABAN 15 MG TABLET PO SCH (09:00)
[2019-03-16] MEDS: METOPROLOL TARTRATE 25 MG TAB PO SCH (09:00)
[2019-03-16] MEDS: AMIODARONE HCL 200 MG TAB PO SCH (09:00)
[2019-03-16] MEDS: PANTOPRAZOLE SOD 40 MG TABEC PO SCH (09:00)
[2019-03-16 11:30] VITALS: BP 140/65
--- NOTE | 2019-03-16 11:45 | NUR ---
RECEIVED DC ORDER FROM MD. PATIENT IS IN STABLE CONDITION. IV LINE TO RIGHT WRIST DCD WITH TIP INTACT, PRESSURE APPLIED TO SITE, NO BLEEDING NOTED. DISCHARGE TEACHING PROVIDED, PATIENT VERBALIZED UNDERSTANDING. ALL PERSONAL ITEMS AND DISCHARGE FOLDER ON HAND. PATIENT ACCOMPANIED TO PRIVATE AUTO VIA WHEELCHAIR BY STAFF.
--- NOTE | 2019-03-16 18:09 | NUR ---
PT DC'ING HOME TODAY. MET W THE PT AND SPOUSE AT THE BEDSIDE. IMM LETTER EXPLAINED; VERBALIZED UNDERSTANDING. IMM LETTER SIGNED BY PT. COPY TO PT AND COPY TO CHART.
--- NOTE | 2019-03-17 05:07 | Discharge Summary ---
PRIMARY CARE PHYSICIAN: Dr. Kenyatta Garcia. CONSULTANTS: 1. Dr. Jaron Fair. 2. Dr. Jeffy Riggins. FINAL DIAGNOSES: 1. Atrial fibrillation with rapid ventricular rate, response. 2. Urinary tract infection. SUMMARY: This is a 68-year-old male with rapid atrial fibrillation. The patient did not take his amiodarone for over a month because he ran out of prescription. The patient came in with rapid ventricular rate, response. He was placed on amiodarone drip and subsequently loading. The patient is stable now. He is doing much better. With respect to his urinary tract infection, the patient has received Rocephin. He is doing well. The patient will be discharged home today. INSTRUCTIONS: As follows. 1. Resume home medication. 2. Refill amiodarone 200 mg twice a day. 3. Keflex 500 mg three times a day for five days. The patient will follow up with his family physician, Dr. Kenyatta Garcia, and his laceworker now, Dr. Diane Churchill in approximately 1 to 2 weeks. He will follow up with Dr. Jeffy Riggins for outpatient, elective schedule for cystoscopy. The patient is stable discharged home today. MD LOKI Smith/DIANNE /[id number]
== END 2019-03-16 11:50 | disposition home or self-care (01) | DRG 309 ==
LOC: ER 09:22 → ERHOLD 11:22 → MED/SURG3 16:43 → IMCU 20:26 → MED/SURG3 03-14 12:27
PROVIDERS: ADMIT Internal Medicine; ATTEND Internal Medicine
DX: I48.91 Unspecified atrial fibrillation (principal); N39.0 Urinary tract infection, site not specified; Z79.01 Long term (current) use of anticoagulants; I10 Essential (primary) hypertension; K21.9 Gastro-esophageal reflux disease without esophagitis; N40.0 Benign prostatic hyperplasia without lower urinary tract symptoms; N28.1 Cyst of kidney, acquired
CPT/HCPCS: 36415; 71045; 80048; 80053; 80061; 80162; 81001; 82550; 82553; 83880; 84443; 84484; 85025; 85610; 85730; 87086; 90732; 93005; 93306; 99284; J0153; J0696; J1650; J7030; J7050

== ENCOUNTER 2019-07-12 00:20 | Emergency (ER) | payer OTHER ==
[~2019-07-12] VITALS: Ht 167.6 cm; Wt 71.7 kg
[2019-07-12 00:45] LABS: BASOPHILS # (AUTO) 0.1 (0.0-0.1); BASOPHILS % 0.7 % (0.0-1.0); EOSINOPHILS # (AUTO) 0.3 (0.0-0.4); EOSINOPHILS % 2.7 % (0.0-6.0); HEMATOCRIT 40.9 % (38.2-49.6); HEMOGLOBIN 12.7 g/dL (14.0-18.0); LYMPHOCYTES # (AUTO) 3.2 (1.0-3.2); LYMPHOCYTES % 28.2 % (18.0-39.1); MEAN CORPUSCULAR HEMOGLOBIN 25.3 pg (28-32); MEAN CORPUSCULAR HGB CONC 31.1 g/dL (31-35); MEAN CORPUSCULAR VOLUME 81.6 fL (81-99); MONOCYTES # (AUTO) 0.9 (0.2-0.8); MONOCYTES % 7.6 % (4.4-11.3); NEUTROPHILS # (AUTO) 6.8 (2.1-6.9); NEUTROPHILS % 60.3 % (38.7-80.0); PLATELET COUNT 304 x10e3/uL (140-360); RED BLOOD COUNT 5.01 x10e6/uL (4.3-5.7); RED CELL DISTRIBUTION WIDTH 15.5 % (11.7-14.4)
[2019-07-12 00:58] LABS: PROTHROMBIN TIME 13.7 seconds (11.9-14.5)
[2019-07-12 00:59] LABS: PARTIAL THROMBOPLASTIN TIME 29.5 seconds (23.8-35.5)
[2019-07-12 01:08] LABS: ALBUMIN 3.6 g/dL (3.5-5.0); BILIRUBIN,URINE MODERATE (NEGATIVE); CALCIUM 9.1 mg/dL (8.4-10.2); CLARITY,URINE CLOUDY (CLEAR); COLOR,URINE RED (YELLOW); KETONES,URINE TRACE (NEGATIVE); LEUKOCYTE ESTERASE ,URINE MODERATE (NEGATIVE); NITRITE,URINE POSITIVE (NEGATIVE); POTASSIUM 3.8 mmol/L (3.5-5.1); URINE UROBILINOGEN 2 mg/dL (0.2 - 1)
[2019-07-12 01:12] LABS: PROTEIN,URINE DIPSTICK 3+ (NEGATIVE)
[2019-07-12 01:13] LABS: BACTERIA,URINE MODERATE /HPF; EPITHELIAL CELLS,URINE FEW /LPF; RBC,URINE >50 /HPF (0-5); WBC,URINE (MAN) >50 /HPF (0-5)
[2019-07-12] MEDS: CEFTRIAXONE SOD 1 GM/NS 50 ML 50 ML IV ONE (01:27)
[2019-07-12 01:33] LABS: ANION GAP 12.8 mmol/L (8-16); CREATININE, SERUM 1.24 mg/dL (0.72-1.25)
[2019-07-12 01:49] VITALS: BP 144/69
== END 2019-07-12 01:58 | disposition home or self-care (01) ==
LOC: ER 00:20
DX: N30.01 Acute cystitis with hematuria (principal); I48.91 Unspecified atrial fibrillation; Z79.01 Long term (current) use of anticoagulants
CPT/HCPCS: 36415; 80053; 81001; 85025; 85610; 85730; 87086; 99283; J0696

== ENCOUNTER → 2019-08-21 | Day surgery (SDC) | payer MEDICARE, OTHER ==
[2019-08-20 13:34] LABS: BASOPHILS # (AUTO) 0.1 (0.0-0.1); BASOPHILS % 0.6 % (0.0-1.0); EOSINOPHILS # (AUTO) 0.1 (0.0-0.4); EOSINOPHILS % 1.3 % (0.0-6.0); HEMATOCRIT 38.8 % (38.2-49.6); HEMOGLOBIN 11.8 g/dL (14.0-18.0); LYMPHOCYTES # (AUTO) 2.2 (1.0-3.2); LYMPHOCYTES % 25.6 % (18.0-39.1); MEAN CORPUSCULAR HEMOGLOBIN 25.1 pg (28-32); MEAN CORPUSCULAR HGB CONC 30.4 g/dL (31-35); MEAN CORPUSCULAR VOLUME 82.4 fL (81-99); MONOCYTES # (AUTO) 0.7 (0.2-0.8); MONOCYTES % 8.7 % (4.4-11.3); NEUTROPHILS # (AUTO) 5.4 (2.1-6.9); NEUTROPHILS % 63.6 % (38.7-80.0); PLATELET COUNT 322 x10e3/uL (140-360); RED BLOOD COUNT 4.71 x10e6/uL (4.3-5.7); RED CELL DISTRIBUTION WIDTH 15.2 % (11.7-14.4)
[~2019-08-21] MED LIST changes: +AMIODARONE HCL200 MG PO; +B&O 60MG R/S 60 MG SUPP PR ONE; +CEFTRIAXONE SOD 1 GM/NS 50 ML 50 ML IV ONE; +IOPAMIDOL 300MG/ML 50ML INFUS..BTL IV ONE; +IOTHALAMATE MEGLUMINE 17.20% 250 ML BTL ONE; +LIDOCAINE HCL 2% LOCAL INJ 5 ML SDV VIAL INJ ONE; +LOSARTAN POTASS25 MG PO; +PROPOFOL IV EMULSION 10 MG/ML 20 ML VIAL ONE; +SEVOFLURANE INHAL SOLN 250 ML PEN BTL ONE; +TRIAMCINOLONE A15 G1 TOP
[2019-08-21 16:00] VITALS: BP 148/72
--- NOTE | 2019-09-22 02:54 | Operative Report ---
DATE OF PROCEDURE: 08/21/2019 SURGEON: Jeffy Riggins MD PREOPERATIVE DIAGNOSES: 1. Urinary tract infections. 2. Bilateral nephrolithiasis. POSTOPERATIVE DIAGNOSES: 1. Urinary tract infections. 2. Bilateral nephrolithiasis. 3. Bladder diverticulum. OPERATIONS PERFORMED: 1. Cystourethroscopy with bilateral ureteral catheterization and retrograde ureteropyelography. 2. Interpretation of retrograde ureteropyelography. 3. Supervision of fluoroscopy, no radiologist present. 4. Cystography and interpretation, no radiologist present (surgery procedure performed to evaluate the bladder diverticulum). ANESTHESIA: General. COMPLICATIONS: None. CLINICAL SUMMARY: Lowell Trimble III, is a 68-year-old man with urinary tract infections and bilateral nephrolithiasis. He was brought for evaluation. He is aware of the risks of bleeding, infection, injury to adjacent structures, need for additional procedures and elected to proceed. OPERATIVE PROCEDURE IN DETAIL: Informed consent was verified. Lowell Trimble III, was properly identified, taken to the operating room, placed on the cystoscopy table in supine position. Anesthesia was uneventfully begun. The patient was then carefully, gently repositioned in dorsal lithotomy position with all pressure points well padded. His genitalia were prepared and draped in usual sterile fashion. The cystoscope sheath with the visual obturator in place was atraumatically inserted into the patient's urethra, it was guided unremarkable distal urethra through some wide caliber, not clinically significant stricture just at the bulbar region. We then entered the sphincteric region, and once into the prostate bed, which was significant for bilobar prostatic hypertrophy with visual obstruction. We entered the patient's bladder and performed panendoscopy of the bladder. There was an open-mouth diverticulum that was rather large just medial to the left ureteral orifice. There were no suspicious lesions and there were no tumors, there were no stones. The cystoscope sheath was inserted into this diverticulum and contrast was injected. The diverticulum was virtually the size of the bladder itself. It distorted the left ureter and pushed over laterally and caused a tortuous course to the ureter. Retrograde pyelograms on the right-hand side revealed normal upper tracts without any filling defects. No hydronephrosis, and I could not visualize the stones well. Nevertheless, unobstructed drainage was observed bilaterally fluoroscopically. Interpretation of retrograde ureteropyelography contrast was instilled in retrograde fashion bilaterally. There were no tumors and no suspicious lesions. It is difficult to visualize the kidney stones on today's study. The left ureter was distorted and displaced laterally. The right ureter was unremarkable. The collecting system on the left hand side was bifid in nature. Interpretation of cystography contrast was instilled in a retrograde fashion via the cystoscope sheath. The patient had a good capacity bladder. The bladder diverticulum off the left lateral wall was virtually the size of the bladder. No filling defects were identified. The bladder wall and diverticulum wall were relatively smooth. The patient's bladder was drained. Belladonna and opium suppositories were placed revealing a large prostate, smooth and non-fluctuant without any nodules. The patient was then uneventfully reversed from anesthesia and taken to recovery room in stable condition. No complications to the procedure he tolerated the procedure well. Plans will be to return the patient to the operating room following cardiac clearance for cystoscopy, bilateral placement of stents, bladder diverticulectomy and retropubic prostatectomy. Jeffy Riggins MD [place]/MODL /[id number] cc: Kenyatta Garcia MD
== END | disposition home or self-care (01) ==
LOC: OR 09:52
PROVIDERS: ATTEND Urology
DX: N40.1 Benign prostatic hyperplasia with lower urinary tract symptoms (principal); N13.30 Unspecified hydronephrosis; N39.41 Urge incontinence; R35.1 Nocturia; N32.3 Diverticulum of bladder; R39.12 Poor urinary stream; N20.0 Calculus of kidney; N39.0 Urinary tract infection, site not specified; N28.1 Cyst of kidney, acquired; R31.0 Gross hematuria; R31.29 Other microscopic hematuria; Z88.8 Allergy status to other drugs, medicaments and biological substances; K21.9 Gastro-esophageal reflux disease without esophagitis; I10 Essential (primary) hypertension; F41.9 Anxiety disorder, unspecified; M54.2 Cervicalgia; M54.9 Dorsalgia, unspecified; Z01.812 Encounter for preprocedural laboratory examination; N13.8 Other obstructive and reflux uropathy
CPT/HCPCS: 36415; 51600; 74420; 74430; 85025; 87086; C1758; J0696; J2001; J2704; Q9958; Q9967

== ENCOUNTER 2019-10-12 10:45 | Inpatient (IN) | payer MEDICARE ==
[2019-10-09 10:43] LABS: BASOPHILS # (AUTO) 0.1 (0.0-0.1); BASOPHILS % 0.7 % (0.0-1.0); EOSINOPHILS # (AUTO) 0.1 (0.0-0.4); EOSINOPHILS % 0.8 % (0.0-6.0); HEMATOCRIT 42.3 % (38.2-49.6); HEMOGLOBIN 12.6 g/dL (14.0-18.0); LYMPHOCYTES # (AUTO) 1.9 (1.0-3.2); LYMPHOCYTES % 21.6 % (18.0-39.1); MEAN CORPUSCULAR HEMOGLOBIN 25.6 pg (28-32); MEAN CORPUSCULAR HGB CONC 29.8 g/dL (31-35); MEAN CORPUSCULAR VOLUME 85.8 fL (81-99); MONOCYTES # (AUTO) 0.7 (0.2-0.8); MONOCYTES % 7.8 % (4.4-11.3); NEUTROPHILS # (AUTO) 6.1 (2.1-6.9); NEUTROPHILS % 68.9 % (38.7-80.0); PLATELET COUNT 199 x10e3/uL (140-360); RED BLOOD COUNT 4.93 x10e6/uL (4.3-5.7)
[~2019-10-12] VITALS: Ht 167.6 cm; Wt 68.9 kg
[~2019-10-12 10:45] MED LIST changes: -B&O 60MG R/S 60 MG SUPP PR ONE; -CEFTRIAXONE SOD 1 GM/NS 50 ML 50 ML IV ONE; -IOPAMIDOL 300MG/ML 50ML INFUS..BTL IV ONE; -IOTHALAMATE MEGLUMINE 17.20% 250 ML BTL ONE; -LIDOCAINE HCL 2% LOCAL INJ 5 ML SDV VIAL INJ ONE; -PROPOFOL IV EMULSION 10 MG/ML 20 ML VIAL ONE; -SEVOFLURANE INHAL SOLN 250 ML PEN BTL ONE
[2019-10-12] MEDS ORDERED: PIPER-TAZ 3.375 GM 50 ML ONE ×2 (11:31→12:53)
[2019-10-12] MEDS ORDERED: LEVOFLOXACIN 500MG/D5W 100ML 100 ML IV ONE (11:31)
[2019-10-12] MEDS ORDERED: IOPAMIDOL 300MG/ML 50ML INFUS..BTL IV ONE (12:56)
[2019-10-12] MEDS ORDERED: IBUPROFEN 800MG/ 250ML 250 ML IV ONE (13:55)
[2019-10-12] MEDS ORDERED: SUGAMMADEX SODIUM 200 MG/2 ML VIAL IV ONE (14:50)
[2019-10-12] MEDS ORDERED: ONDANSETRON HCL INJ 2MG/ML 2ML 2 MG/ML VIAL IV PRN (15:15)
[2019-10-12] MEDS ORDERED: NALOXONE HCL INJ 0.4 MG/ML AMP IV PRN (15:15)
[2019-10-12] MEDS ORDERED: MORPHINE SULFATE 1 MG/ML 30ML PCA IV PRN (15:15)
[2019-10-12] MEDS: SODIUM CHLORIDE 0.9% 250ML IRRIG IR SCH ×2 (15:15→21:12)
[2019-10-12] MEDS ORDERED: MORPHINE SULFATE 1 MG/ML 30ML PCA ONE (15:59)
[2019-10-12] MEDS ORDERED: ONDANSETRON HCL INJ 2MG/ML 2ML 2 MG/ML VIAL ONE ×2 (16:04→18:59)
[2019-10-12] MEDS ORDERED: MORPHINE SULFATE INJ 4 MG/ML INJ 1ML ONE (16:04)
[2019-10-12 16:30] VITALS: BP 145/74
[2019-10-12 18:13] VITALS: BP 145/74
[2019-10-12 18:16] VITALS: BP 145/74
[2019-10-12] MEDS ORDERED: DEXAMETHASONE SOD PHOS INJ 4 MG/ML VIAL ONE (18:59)
[2019-10-12] MEDS ORDERED: PROPOFOL IV EMULSION 10 MG/ML 20 ML VIAL ONE (18:59)
[2019-10-12] MEDS ORDERED: ROCURONIUM BROMIDE 10 MG/ML 5ML VIAL ONE (18:59)
[2019-10-12] MEDS ORDERED: SEVOFLURANE INHAL SOLN 250 ML PEN BTL ONE (18:59)
[2019-10-12] MEDS ORDERED: LIDOCAINE HCL 2% LOCAL INJ 5 ML SDV VIAL INJ ONE (18:59)
--- NOTE | 2019-10-12 19:00 | NUR ---
RECEIVED PATIENT IN BEDSIDE REPORT. PATIENT RESTING IN BED AT THIS TIME. FUNERAL SALES MANAGER PUMP CHECKS DONE WITH RNS. PAIN REPORTED /. NG TUBE TO R NARE WITH LOW CONTINUOUS SUCTION, RED-TINGED FLUID NOTED. DYKES DRAINING TO GRAVITY, CLEAR AND BLOODY, NO CLOTS NOTED. YOLIS HOSE AND SCD PUMPS ON AND ACTIVE. TELE BOX#26, CURRENTLY RUNNING SB AT 57. WILL CONTINUE TO MONITOR CLOSELY. BED LOCKED IN LOWEST POSITION, SIDE RAILS UPX2, CALL LIGHT IN REACH.
[2019-10-12] MEDS ORDERED: FENTANYL CITRATE/PF 100MCG/2 ML INJ ONE (19:23)
[2019-10-12 19:46] VITALS: BP 128/66
[2019-10-12 20:00] VITALS: BP 128/66
[2019-10-12] MEDS: CEFAZOLIN SOD 1 GM/NS 50ML 50 ML IV SCH (21:12)
[2019-10-13] VITALS (8 sets, daily range): BP systolic 112–137; BP diastolic 55–65
[2019-10-13] MEDS: SODIUM CHLORIDE 0.9% 250ML IRRIG IR SCH ×3 (00:42→07:51)
[2019-10-13] MEDS ORDERED: LACTATED RINGER'S 1,000 ML ONE (02:33)
[2019-10-13] MEDS: CEFAZOLIN SOD 1 GM/NS 50ML 50 ML IV SCH ×3 (05:51→21:28)
[2019-10-13 06:16] LABS: BASOPHILS % 0.1 % (0.0-1.0); HEMATOCRIT 34.2 % (38.2-49.6); HEMOGLOBIN 10.4 g/dL (14.0-18.0); LYMPHOCYTES # (AUTO) 1.2 (1.0-3.2); MEAN CORPUSCULAR HEMOGLOBIN 25.3 pg (28-32); MEAN CORPUSCULAR HGB CONC 30.4 g/dL (31-35); MEAN CORPUSCULAR VOLUME 83.2 fL (81-99); MONOCYTES # (AUTO) 1.2 (0.2-0.8); MONOCYTES % 8.2 % (4.4-11.3); NEUTROPHILS # (AUTO) 12.2 (2.1-6.9); NEUTROPHILS % 83.2 % (38.7-80.0); PLATELET COUNT 243 x10e3/uL (140-360); RED BLOOD COUNT 4.11 x10e6/uL (4.3-5.7); RED CELL DISTRIBUTION WIDTH 17.7 % (11.7-14.4)
[2019-10-13 06:36] LABS: ANION GAP 11.2 mmol/L (8-16); BLOOD UREA NITROGEN 17 mg/dL (7-26); BUN/CREATININE RATIO 18 (6-25); CALCIUM 7.9 mg/dL (8.4-10.2); CARBON DIOXIDE 21 mmol/L (22-29); CHLORIDE 109 mmol/L (98-107); CREATININE, SERUM 0.96 mg/dL (0.72-1.25); EST GLOMERULAR FILTRATION RATE > 60 ML/MIN (60-); GLUCOSE 90 mg/dL (74-118); POTASSIUM 4.2 mmol/L (3.5-5.1); SODIUM 137 mmol/L (136-145)
--- NOTE | 2019-10-13 07:00 | NUR ---
RECEIVED PATIENT AWAKE RESTING IN BED NO S/S OF DISTRESS. BED LOW, WHEELS LOCKED, SIDE RAILS X2. CALL LIGHT IN REACH WILL CONTINUE TO MONITOR PATIENT.
[2019-10-13] MEDS: D5.45%NS/KCL 20MEQ 1,000 ML IV SCH ×2 (07:15→07:51)
[2019-10-13] MEDS ORDERED: METOPROLOL TARTRATE INJ 1 MG/ML VIAL IV PRN (08:45)
[2019-10-13] MEDS ORDERED: MORPHINE SULFATE 1 MG/ML 30ML PCA IV PRN (09:15)
--- NOTE | 2019-10-13 09:30 | NUR ---
REMOVED PATIENTS NGT. TUBE INTACT ON REMOVAL. PATIENT TOLERATED WELL.
[2019-10-13] MEDS: FAMOTIDINE 20 MG/2 ML VIAL IV SCH ×2 (09:41→17:22)
[2019-10-13] MEDS: SODIUM CHLORIDE 0.9% 1000ML 1,000 ML IV SCH ×2 (09:42→19:13)
--- NOTE | 2019-10-13 10:22 | History and Physical ---
CHIEF COMPLAINT: The patient is status post bilateral ureteral stent placement and complicated urinary bladder diverticulectomy. Procedure was done by Dr. Jeffy Riggins. HISTORY OF PRESENT ILLNESS: This is a 68-year-old male with history of recurrent urinary tract infection with urinary bladder diverticulum and bilateral nephrolithiasis. The patient is status post cystoscopy with bilateral stent placement and urinary bladder diverticulectomy. The patient had a complicated procedure. The patient had an NG tube in place. The patient is otherwise stable at this time. Per the significant finding on the operative note, the patient's bladder was too thin, prostatectomy at this time. The patient is otherwise stable now. Pain is under control. He is comfortable. 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 Urinary bladder diverticulum. The patient is status post cystoscopy and bilateral ureteral stent placement and bladder diverticulectomy. SOCIAL HISTORY: The patient does not smoke or use alcohol. No recreational drugs. ALLERGIES: METHYLPREDNISOLONE. HOME MEDICATIONS: Amiodarone, losartan, metoprolol, Xarelto, and omeprazole. PHYSICAL EXAMINATION: VITAL SIGNS: Temperature is 98, blood pressure 120/62, pulse rate is 58, and respirations 18. GENERAL: The patient is not in acute distress. HEENT: Normocephalic, atraumatic. Anicteric. NG tube in place. PULMONARY: Diminished breath sounds. CARDIOVASCULAR: Atrial fibrillation, rate controlled. ABDOMEN: Soft, positive tenderness. No rebound or guarding. Postop. EXTREMITIES: No cyanosis or edema. NEUROLOGIC: No gross focal deficit. LABORATORY DATA: Sodium is 137, potassium 4.2, chloride 109, bicarb 21, BUN 32, creatinine 0.9, and glucose 90. WBC is 15, hemoglobin 10, hematocrit 34, and platelets 243. IMPRESSION: 1. Postoperative day 1 status post urological procedures, cystoscopy with bilateral ureteral stent placement and urinary bladder diverticulectomy, complicated procedures. 2. Reactive leukocytosis postop. 3. Nasogastric tube. 4. Baseline atrial fibrillation, he was on Xarelto, on hold for surgery. The patient is otherwise stable at this time. PLAN: Continue with SCD. Incentive spirometry. Postoperative care. Check the patient's lab work. Continue with pain control. PT/OT when appropriate. NG tube diet will be determined by Dr. Riggins. MD OLIVE Smith /[id number]
[2019-10-14] VITALS (7 sets, daily range): BP systolic 109–150; BP diastolic 55–79
[2019-10-14] MEDS: SODIUM CHLORIDE 0.9% 1000ML 1,000 ML IV SCH ×3 (04:17→21:45)
[2019-10-14] MEDS: CEFAZOLIN SOD 1 GM/NS 50ML 50 ML IV SCH ×3 (05:55→21:57)
[2019-10-14 05:59] LABS: BASOPHILS % 0.3 % (0.0-1.0); EOSINOPHILS % 0.1 % (0.0-6.0); HEMATOCRIT 33.6 % (38.2-49.6); HEMOGLOBIN 10.4 g/dL (14.0-18.0); LYMPHOCYTES # (AUTO) 1.7 (1.0-3.2); LYMPHOCYTES % 14.4 % (18.0-39.1); MEAN CORPUSCULAR HEMOGLOBIN 25.8 pg (28-32); MEAN CORPUSCULAR VOLUME 83.4 fL (81-99); MONOCYTES # (AUTO) 1.3 (0.2-0.8); NEUTROPHILS # (AUTO) 8.8 (2.1-6.9); NEUTROPHILS % 73.6 % (38.7-80.0); PLATELET COUNT 235 x10e3/uL (140-360); RED BLOOD COUNT 4.03 x10e6/uL (4.3-5.7)
[2019-10-14 06:17] LABS: ANION GAP 10.8 mmol/L (8-16); BLOOD UREA NITROGEN 12 mg/dL (7-26); BUN/CREATININE RATIO 13 (6-25); CALCIUM 7.9 mg/dL (8.4-10.2); CARBON DIOXIDE 23 mmol/L (22-29); CHLORIDE 107 mmol/L (98-107); CREATININE, SERUM 0.93 mg/dL (0.72-1.25); EST GLOMERULAR FILTRATION RATE > 60 ML/MIN (60-); GLUCOSE 80 mg/dL (74-118); POTASSIUM 3.8 mmol/L (3.5-5.1); SODIUM 137 mmol/L (136-145)
--- NOTE | 2019-10-14 07:00 | NUR ---
Rcvd patient in report this am. Patient is asleep in bed at this time. No s/s of distress noted
[2019-10-14] MEDS ORDERED: KETOROLAC TROMETHAMINE 30 MG/ML VIAL IV PRN (08:00)
[2019-10-14] MEDS ORDERED: HYDROMORPHONE 1MG/1ML INJ IV PRN (08:00)
[2019-10-14] MEDS ORDERED: BISACODYL 10 MG SUPP PR PRN (08:00)
[2019-10-14] MEDS ORDERED: BISACODYL 10 MG SUPP PR ONE (09:00)
[2019-10-14] MEDS: FAMOTIDINE 20 MG/2 ML VIAL IV SCH ×2 (09:56→17:42)
[2019-10-14] MEDS: METOCLOPRAMIDE HCL 10 MG/2ML VIAL IV SCH ×3 (09:56→21:57)
--- NOTE | 2019-10-14 10:04 | Consultation ---
DATE OF CONSULTATION: Cardiology Consult HISTORY OF PRESENT ILLNESS: The patient is 68-year-old male with primary history of hypertension, atrial fibrillation and on Xarelto and amiodarone at home, who is now in sinus rhythm. Other history includes recurrent urinary tract infection with urinary bladder diverticulum and bilateral nephrolithiasis. The patient do complaint of abdominal tenderness, however denies any chest pain. No dyspnea, no palpitation. This consultation is intended through the patient for any surgery this may serve. PAST MEDICAL HISTORY: Atrial fibrillation, hypertension, GERD, cleft palate repair and hernia repair, urinary bladder diverticulum, status post cystoscopy and bilateral ureteral stent placement and bladder diverticulectomy. SOCIAL HISTORY: The patient is nonsmoker and do not use alcohol or any recreational drugs. ALLERGIES: METHYLPREDNISOLONE. HOME MEDICATIONS: 1. Amiodarone. 2. Losartan. 3. Metoprolol. 4. Xarelto. 5. Omeprazole. PHYSICAL EXAMINATION: VITAL SIGNS: Temperature 98, blood pressure was 120/62, pulse rate is 58 and respirations 18. GENERAL: The patient is not in any acute distress. HEENT: Normocephalic, atraumatic and anicteric. PULMONARY: Clear to auscultation bilaterally. CARDIOVASCULAR: Artrial fibrillation with controlled rate. ABDOMEN: Soft, mild tenderness, hypoactive bowel sounds. EXTREMITIES: There is no edema and pulses are palpable. NEUROLOGIC: The patient is awake, alert and oriented. No gross focal deficit. LABORATORY DATA: Sodium is 137, potassium 4.2, chloride 109, bicarb 21, BUN 32, creatinine 0.9 and glucose 90. WBC is 15, hemoglobin is 10, hematocrit is 34, and platelets 34. PLAN: Continue telemetry monitoring, hold or discontinue Xarelto, continue beta-blockers and clear for surgery. No further cardiac evaluation at this time. Dictated by Chata Mcintosh, AIR POLLUTION CONTROL ENGINEER MD MILEY Middleton/DIANNE /[id number]
--- NOTE | 2019-10-14 10:39 | NUR ---
discussed home health order with patient. in network with his insurance and available to take patients is [facility]. [facility]. Clinicals and order faxed to [phone].
--- NOTE | 2019-10-14 10:41 | NUR ---
IMM explained to patient, patient signed, copy to patient, original to chart.
--- NOTE | 2019-10-14 11:00 | Consultation ---
DATE OF CONSULTATION: 10/13/2019 Mr. Lowell Trimble is -jjvw-opt male with primary history of hypertension, atrial fibrillation, on Xarelto and amiodarone at home, and is in now sinus rhythm. The patient denies any dyspnea, denies any chest pain. No palpitations. The patient is cleared for any surgery. This consultation may serve no further cardiac evaluation at this time. Dictated by Chata Mcintosh, BREWERY CELLAR WORKER MD MILEY Middleton/DIANNE /[id number]
--- NOTE | 2019-10-14 13:28 | NUR ---
Received call from [facility], they are able to accept patient.
[2019-10-14] MEDS ORDERED: TRIAMCINOLONE ACET 0.025% 15 GM CREAM TP PRN (18:30)
[2019-10-14] MEDS: DIPHENHYDRAMINE HCL INJ 50 MG/ML VIAL IM PRN (18:30)
--- NOTE | 2019-10-14 18:39 | NUR ---
Patient c/o rash on his back. Redness noted. Benadryl given and order noted for prn triamcinolone.
[2019-10-15] VITALS (7 sets, daily range): BP systolic 117–159; BP diastolic 58–70
[2019-10-15 05:40] LABS: BASOPHILS % 0.4 % (0.0-1.0); EOSINOPHILS # (AUTO) 0.1 (0.0-0.4); EOSINOPHILS % 0.6 % (0.0-6.0); HEMOGLOBIN 10.4 g/dL (14.0-18.0); LYMPHOCYTES # (AUTO) 1.7 (1.0-3.2); LYMPHOCYTES % 15.5 % (18.0-39.1); MEAN CORPUSCULAR HGB CONC 30.6 g/dL (31-35); MONOCYTES # (AUTO) 1.2 (0.2-0.8); NEUTROPHILS # (AUTO) 7.7 (2.1-6.9); NEUTROPHILS % 71.9 % (38.7-80.0); PLATELET COUNT 227 x10e3/uL (140-360); RED CELL DISTRIBUTION WIDTH 17.8 % (11.7-14.4)
[2019-10-15] MEDS: CEFAZOLIN SOD 1 GM/NS 50ML 50 ML IV SCH ×3 (05:43→22:00)
[2019-10-15] MEDS: DIPHENHYDRAMINE HCL INJ 50 MG/ML VIAL IM PRN (05:43)
[2019-10-15] MEDS: METOCLOPRAMIDE HCL 10 MG/2ML VIAL IV SCH ×3 (05:43→16:45)
[2019-10-15 06:02] LABS: ANION GAP 13.5 mmol/L (8-16); BLOOD UREA NITROGEN 12 mg/dL (7-26); BUN/CREATININE RATIO 15 (6-25); CALCIUM 7.8 mg/dL (8.4-10.2); CARBON DIOXIDE 21 mmol/L (22-29); CHLORIDE 109 mmol/L (98-107); CREATININE, SERUM 0.81 mg/dL (0.72-1.25); EST GLOMERULAR FILTRATION RATE > 60 ML/MIN (60-); GLUCOSE 91 mg/dL (74-118); POTASSIUM 3.5 mmol/L (3.5-5.1); SODIUM 140 mmol/L (136-145)
[2019-10-15] MEDS ORDERED: FAMOTIDINE 20 MG TAB PO PRN (08:15)
[2019-10-15] MEDS ORDERED: TRIAMCINOLONE ACET 0.1% CREAM 15 GM TUBE TOP PRN (08:15)
[2019-10-15] MEDS: AMIODARONE HCL 200 MG TAB PO SCH ×2 (08:36→16:45)
[2019-10-15] MEDS: LOSARTAN POTASSIUM 25 MG TAB PO SCH (08:36)
[2019-10-15] MEDS: METOPROLOL TARTRATE 25 MG TAB PO SCH ×2 (08:46→16:46)
[2019-10-15] MEDS: PANTOPRAZOLE SOD 40 MG TABEC PO SCH (09:00)
[2019-10-15] MEDS: SODIUM CHLORIDE 0.9% 1000ML 1,000 ML IV SCH ×2 (13:10→23:18)
--- NOTE | 2019-10-15 13:36 | NUR ---
patient resting in bed, c/o constipation and gas, prn dulcolax supp given, had BM, assisted patient to restroom
--- NOTE | 2019-10-15 17:04 | NUR ---
KJ Drain removed as per Dr Riggins's order, pressure dressing applied, patient tolerated well, during removal output was 5cc.
--- NOTE | 2019-10-15 19:51 | NUR ---
RECEIVED PT IN BED AOX3 .DENIES PAIN .ESTEPHANIA AT ABD INTACT .RT HAND 18 9 NS AT 100 CC/HR .TEL 26 SB .CALL LIGHT WITH IN REACH .CONTINUE TO MONITOR
[2019-10-16] VITALS (7 sets, daily range): BP systolic 132–163; BP diastolic 62–72
[2019-10-16 05:13] LABS: BASOPHILS % 0.3 % (0.0-1.0); EOSINOPHILS # (AUTO) 0.2 (0.0-0.4); EOSINOPHILS % 2.3 % (0.0-6.0); HEMATOCRIT 31.7 % (38.2-49.6); HEMOGLOBIN 9.4 g/dL (14.0-18.0); LYMPHOCYTES # (AUTO) 1.6 (1.0-3.2); LYMPHOCYTES % 15.8 % (18.0-39.1); MEAN CORPUSCULAR HEMOGLOBIN 25.1 pg (28-32); MEAN CORPUSCULAR HGB CONC 29.7 g/dL (31-35); MEAN CORPUSCULAR VOLUME 84.8 fL (81-99); MONOCYTES % 10.2 % (4.4-11.3); NEUTROPHILS % 70.9 % (38.7-80.0); PLATELET COUNT 236 x10e3/uL (140-360); RED BLOOD COUNT 3.74 x10e6/uL (4.3-5.7); RED CELL DISTRIBUTION WIDTH 17.8 % (11.7-14.4)
[2019-10-16] MEDS: CEFAZOLIN SOD 1 GM/NS 50ML 50 ML IV SCH ×2 (05:30→14:00)
--- NOTE | 2019-10-16 05:30 | NUR ---
PT RESTED DURING THE NIGHT .DENIES PAIN .F/C INTACT DRAINING RED COLORED URINE .PT RESTING .CONTINUE TO MONITOR
[2019-10-16 05:31] LABS: ANION GAP 12.3 mmol/L (8-16); BLOOD UREA NITROGEN 11 mg/dL (7-26); BUN/CREATININE RATIO 14 (6-25); CALCIUM 7.5 mg/dL (8.4-10.2); CARBON DIOXIDE 21 mmol/L (22-29); CHLORIDE 108 mmol/L (98-107); CREATININE, SERUM 0.76 mg/dL (0.72-1.25); EST GLOMERULAR FILTRATION RATE > 60 ML/MIN (60-); GLUCOSE 93 mg/dL (74-118); POTASSIUM 3.3 mmol/L (3.5-5.1); SODIUM 138 mmol/L (136-145)
--- NOTE | 2019-10-16 07:00 | NUR ---
RCD PT AT BED PT IS ALERT AND ORIENTED PT RESTING ON BED IV PATENT AND RUNNING 100 ML /HR BED LOW AND LOCKED CALL LIGHT IN REACH
--- NOTE | 2019-10-16 07:18 | NUR ---
BEDSIDE REPORT GIVEN TO THE ONCOMING NURSE
[2019-10-16] MEDS: SODIUM CHLORIDE 0.9% 1000ML 1,000 ML IV SCH ×2 (07:30→17:30)
[2019-10-16] MEDS: AMIODARONE HCL 200 MG TAB PO SCH ×2 (09:00→17:00)
[2019-10-16] MEDS: METOPROLOL TARTRATE 25 MG TAB PO SCH ×2 (09:00→17:00)
[2019-10-16] MEDS: PANTOPRAZOLE SOD 40 MG TABEC PO SCH (09:00)
[2019-10-16] MEDS: LOSARTAN POTASSIUM 25 MG TAB PO SCH (09:00)
[2019-10-16] MEDS: METOCLOPRAMIDE HCL 10 MG/2ML VIAL IV SCH ×2 (09:00→17:00)
[2019-10-16] MEDS ORDERED: POTASSIUM CHLORIDE 10MEQ EA PO ONE (09:00)
[2019-10-16] MEDS ORDERED: BISACODYL 10 MG SUPP PR ONE (10:00)
--- NOTE | 2019-10-16 11:18 | NUR ---
IMM letter delivered and explained to pt. He verbalized understanding. Signed copy placed in chart. Copy to pt.
--- NOTE | 2019-10-16 12:44 | NUR ---
RO spoke with Trinity Aguilar with [facility]. She verified that they have accepted pt and can see him tomorrow if he discharges today. If not, then they will see him on Saturday. HOME HEALTH DISCHARGE NOTE PATIENT ADDRESS WHERE SERVICE WILL BE RECEIVED: [address] [place] [address] [address] [place] [address] PATIENT CONTACT NUMBER: [phone] NAME OF HOME HEALTH COMPANY: [facility] TELEPHONE/FAX NUMBER OF COMPANY: [phone] / F [phone] ADDRESS OF COMPANY: [address] [place] [address], [address] [place] [address] SERVICES TO RECEIVE: [facility] ANTICIPATED DATE SERVICES WILL BEGIN: October 19, 2019 Please call the company above if you have not received a call to schedule a home visit within 24 hours of discharge. Home health information was printed and given to pt.
--- NOTE | 2019-10-16 15:32 | NUR ---
PT REQUESTED TO GO HOME DR QUINTANA OK TO DISCHARGE PT PAGED TO DR ZAPATA AND LEFT THE MESSAGE
[2019-10-16] MEDS ORDERED: TYLENOL # 31 EA PO (15:38)
[2019-10-16] MEDS ORDERED: CEFUROXIME250 MG PO (15:39)
[2019-10-16] MEDS ORDERED: FLOMAX0.4 MG PO (15:39)
[2019-10-16] MEDS ORDERED: PROSCAR5 MG PO (15:40)
--- NOTE | 2019-10-16 16:45 | NUR ---
DR ZAPATA RETURNED THE CALL AND GOT THE DISCHARGE ORDER
--- NOTE | 2019-10-16 17:25 | NUR ---
LEG BAG APPLIED AND TEACH HIM HOW TO DO THAT HE SAID HE UNDERSTOOD
[2019-10-16] MEDS ORDERED: ONDANSETRON HCL 4 MG ORAL DISINTEGRATING TAB PO PRN (17:45)
--- NOTE | 2019-10-16 17:51 | NUR ---
PT WENT HOME IN SAFE CONDITION WITH HIS SON
--- NOTE | 2019-10-18 09:33 | Discharge Summary ---
PRIMARY CARE PHYSICIAN: Kenyatta Garcia M.D. GASTROENTEROLOGY PHYSICIAN: Jeffy Riggins M.D. FINAL DIAGNOSES: 1. Aftercare urological procedure, urinary bladder diverticulum resection. 2. Baseline chronic hematuria secondary to urinary bladder diverticulum. 3. Baseline atrial fibrillation, chronic. SUMMARY: The patient is a 68-year-old male, admitted to the hospital after the procedure cystoscopy and removal of the urinary bladder diverticulum. The patient did not have his prostate procedure for the urinary bladder diverticulum resection was more complicated. It took some time per Dr. Riggins. The patient will need to have his prostate management as an outpatient. Postoperatively, the patient had a long recovery due to his pain and also urinary retention. The patient is stable. He will be discharged home with a Mckeon catheter. He will have his Mckeon management as an outpatient. With respect to his atrial fibrillation, the patient was on Xarelto. He will resume once the hematuria stopped. Discussed with the patient at length. He will follow up with Dr. Riggins and resume Xarelto soon if his hematuria completely resolved. The patient is otherwise stable. Resume home medication. Prescription was given by Dr. Riggins for antibiotics and pain medication. He will follow up with Dr. Riggins. He will follow up with his family physician, Dr. Kenyatta Garcia for medication reconciliation. The patient was stable, discharged home on October 16, 2019. MD LOKI Smith/DIANNE /[id number]
== END 2019-10-16 17:47 | disposition home or self-care (01) | DRG 654 ==
LOC: OR 10:45 → PACU V 16:24 → MED/SURG 16:55 → MED/SURG2 10-15 17:54
PROVIDERS: ADMIT Internal Medicine; ATTEND Internal Medicine
PROC: 0TBB4ZZ Excision of Bladder, Percutaneous Endoscopic Approach (ICD-10-PCS; principal; 2019-10-12 12:50)
PROC: 0T788DZ Dilation of Bilateral Ureters with Intraluminal Device, Via Natural or Artificial Opening Endoscopic (ICD-10-PCS; 2019-10-12 12:50)
DX: N32.3 Diverticulum of bladder (principal); I48.20 Chronic atrial fibrillation, unspecified; I48.91 Unspecified atrial fibrillation; I10 Essential (primary) hypertension; D72.828 Other elevated white blood cell count; Z79.01 Long term (current) use of anticoagulants; R33.9 Retention of urine, unspecified; N40.0 Benign prostatic hyperplasia without lower urinary tract symptoms
CPT/HCPCS: 36415; 51700; 74420; 80048; 85025; 86850; 86900; 86920; 87086; 88305; 88307; 93005; 97139; C2617; J0690; J1100; J1200; J1885; J1956; J2001; J2270; J2405; J2543; J2765; J3010; J7030; J7121

== ENCOUNTER → 2019-11-05 | Outpatient (CLI) | payer MEDICARE ==
[~2019-11-05] MED LIST changes: +CEFUROXIME250 MG PO; +FLOMAX0.4 MG PO; +IOTHALAMATE MEGLUMINE 17.20% 250 ML BTL ONE; +PROSCAR5 MG PO; +TYLENOL # 31 EA PO
--- NOTE | 2019-11-05 10:34 | Diagnostic Imaging Report ---
EXAM: Fluoroscopically guided cystogram INDICATION: Bladder diverticulum COMPARISON: None available. FINDINGS: CONTROL SYSTEMS DESIGNER: The bowel gas pattern is non-obstructive. Multiple bilateral pelvic phleboliths noted. Bilateral indwelling internal nephroureteral stents. Mckeon catheter in place. Midline surgical skin miquel. BLADDER: The bladder fills adequately with contrast. There is no evidence of postoperative leak. There is substantial retrograde reflux of contrast through the entire course of the ureters up to the renal collecting system bilaterally. Fluoroscopy Time: 1.0 minutes Radiation dose: 25.3 mGy IMPRESSION: No evidence of postoperative bladder leak. The indwelling Mckeon catheter was removed following discussion and review of images with Dr. Jeffy Riggins. Bilateral internal nephroureteral stents in place. Substantial retrograde reflux of contrast via the ureters to the renal collecting system bilaterally. Signed by: Maryjo Ordoñez MD on 11/05/2019 10:30 AM
== END ==
LOC: DX 08:12
PROVIDERS: ATTEND Urology
DX: N32.3 Diverticulum of bladder (principal)
CPT/HCPCS: 74430; Q9958

== ENCOUNTER → 2021-02-16 | Outpatient (CLI) | payer OTHER ==
[~2021-02-16] MED LIST changes: -IOTHALAMATE MEGLUMINE 17.20% 250 ML BTL ONE
== END ==
LOC: US 08:12
PROVIDERS: ATTEND Urology
DX: D20.0 Benign neoplasm of soft tissue of retroperitoneum (principal); N28.1 Cyst of kidney, acquired
CPT/HCPCS: 74018; 76770

== ENCOUNTER 2021-06-18 02:22 | Emergency (ER) | payer MEDICARE, OTHER ==
[~2021-06-18] VITALS: Ht 167.6 cm; Wt 68.9 kg
[2021-06-18 03:14] LABS: BASOPHILS # (AUTO) 0.1 (0.0-0.1); BASOPHILS % 0.7 % (0.0-1.0); EOSINOPHILS # (AUTO) 0.1 (0.0-0.4); EOSINOPHILS % 1.2 % (0.0-6.0); HEMATOCRIT 49.5 % (38.2-49.6); HEMOGLOBIN 15.9 g/dL (14.0-18.0); LYMPHOCYTES # (AUTO) 2.9 (1.0-3.2); LYMPHOCYTES % 25.6 % (18.0-39.1); MEAN CORPUSCULAR HEMOGLOBIN 30.3 pg (28-32); MEAN CORPUSCULAR HGB CONC 32.1 g/dL (31-35); MEAN CORPUSCULAR VOLUME 94.5 fL (81-99); MONOCYTES # (AUTO) 0.9 (0.2-0.8); MONOCYTES % 7.9 % (4.4-11.3); NEUTROPHILS # (AUTO) 7.4 (2.1-6.9); NEUTROPHILS % 64.3 % (38.7-80.0); PLATELET COUNT 271 x10e3/uL (140-360); RED BLOOD COUNT 5.24 x10e6/uL (4.3-5.7); RED CELL DISTRIBUTION WIDTH 13.7 % (11.7-14.4)
[2021-06-18 03:16] LABS: CLARITY,URINE CLOUDY (CLEAR); COLOR,URINE YELLOW (YELLOW); LEUKOCYTE ESTERASE ,URINE NEGATIVE (NEGATIVE); NITRITE,URINE NEGATIVE (NEGATIVE); PROTEIN,URINE DIPSTICK 1+ (NEGATIVE)
[2021-06-18 03:17] LABS: KETONES,URINE NEGATIVE (NEGATIVE); URINE UROBILINOGEN 0.2 mg/dL (0.2 - 1)
[2021-06-18 03:33] LABS: BACTERIA,URINE MANY /HPF; EPITHELIAL CELLS,URINE FEW /LPF; WBC,URINE (MAN) >50 /HPF (0-5)
[2021-06-18 03:34] LABS: MUCUS,URINE MANY (RARE)
[2021-06-18 03:35] LABS: AMYLASE 81 U/L (25-125); LIPASE 147 U/L (8-78)
[2021-06-18 03:37] LABS: ALBUMIN 3.7 g/dL (3.5-5.0); ANION GAP 15.1 mmol/L (8-16); CREATININE, SERUM 1.37 mg/dL (0.72-1.25); POTASSIUM 4.1 mmol/L (3.5-5.1)
[2021-06-18 03:40] LABS: CALCIUM 8.8 mg/dL (8.4-10.2)
[2021-06-18 03:44] LABS: CREATINE KINASE MB 1.2 ng/mL (0-5.0)
[2021-06-18] MEDS ORDERED: IOPAMIDOL 370 MG/ML 200 ML INFUS..BTL INJ ONE (03:59)
[2021-06-18] MEDS ORDERED: SODIUM CHLORIDE 0.9% 50ML 50 ML ONE (04:00)
[2021-06-18] MEDS ORDERED: CEFTRIAXONE 1 GM in SODIUM CHLORIDE 0.9% 50ML 50 ML IV ONE (04:45)
== END 2021-06-18 05:20 | disposition home or self-care (01) ==
LOC: ER 02:34
DX: R10.32 Left lower quadrant pain (principal); K63.89 Other specified diseases of intestine; N39.0 Urinary tract infection, site not specified; I10 Essential (primary) hypertension; I48.91 Unspecified atrial fibrillation; K21.9 Gastro-esophageal reflux disease without esophagitis; Z87.442 Personal history of urinary calculi; R94.31 Abnormal electrocardiogram [ECG] [EKG]
CPT/HCPCS: 36415; 74177; 80053; 81001; 82150; 82550; 82553; 83690; 84484; 85025; 93005; 99284; J0696; Q9967

== ENCOUNTER 2021-06-29 09:24 | Observation (INO) | payer MEDICARE, OTHER ==
[~2021-06-29] VITALS: Ht 167.6 cm; Wt 68.9 kg
[2021-06-29 09:51] LABS: BASOPHILS # (AUTO) 0.1 (0.0-0.1); BASOPHILS % 0.6 % (0.0-1.0); EOSINOPHILS % 0.4 % (0.0-6.0); HEMATOCRIT 48.3 % (38.2-49.6); HEMOGLOBIN 15.7 g/dL (14.0-18.0); LYMPHOCYTES # (AUTO) 1.6 (1.0-3.2); LYMPHOCYTES % 16.6 % (18.0-39.1); MEAN CORPUSCULAR HEMOGLOBIN 30.6 pg (28-32); MEAN CORPUSCULAR HGB CONC 32.5 g/dL (31-35); MEAN CORPUSCULAR VOLUME 94.2 fL (81-99); MONOCYTES # (AUTO) 0.7 (0.2-0.8); MONOCYTES % 6.9 % (4.4-11.3); NEUTROPHILS # (AUTO) 7.3 (2.1-6.9); NEUTROPHILS % 75.1 % (38.7-80.0); PLATELET COUNT 266 x10e3/uL (140-360); RED BLOOD COUNT 5.13 x10e6/uL (4.3-5.7); RED CELL DISTRIBUTION WIDTH 13.6 % (11.7-14.4)
[2021-06-29 10:16] LABS: ALBUMIN 3.7 g/dL (3.5-5.0); ANION GAP 16.3 mmol/L (8-16); CALCIUM 8.7 mg/dL (8.4-10.2); CREATININE, SERUM 1.34 mg/dL (0.72-1.25); POTASSIUM 4.3 mmol/L (3.5-5.1)
[2021-06-29 10:23] LABS: CREATINE KINASE MB 1.2 ng/mL (0-5.0)
[2021-06-29 13:55] VITALS: BP 145/78
[2021-06-29 16:31] VITALS: BP 145/78
[2021-06-29] MEDS ORDERED: XARELTO20 MG PO (16:58)
[2021-06-29] MEDS ORDERED: CYCLOBENZAPRINE10 MG PO (17:03)
[2021-06-29 18:37] LABS: CREATINE KINASE MB 1.5 ng/mL (0-5.0)
[2021-06-29 19:51] VITALS: BP 124/68
[2021-06-29] MEDS ORDERED: TAMSULOSIN HCL 0.4 MG CAP PO SCH (21:00)
[2021-06-29 21:08] VITALS: BP 124/68
[2021-06-30 00:45] VITALS: BP 99/57
[2021-06-30 04:00] VITALS: BP 118/72
[2021-06-30 05:10] LABS: BASOPHILS % 0.4 % (0.0-1.0); EOSINOPHILS # (AUTO) 0.1 (0.0-0.4); EOSINOPHILS % 1.1 % (0.0-6.0); HEMATOCRIT 45.1 % (38.2-49.6); HEMOGLOBIN 14.6 g/dL (14.0-18.0); LYMPHOCYTES # (AUTO) 2.3 (1.0-3.2); LYMPHOCYTES % 24.1 % (18.0-39.1); MEAN CORPUSCULAR HEMOGLOBIN 30.7 pg (28-32); MEAN CORPUSCULAR HGB CONC 32.4 g/dL (31-35); MEAN CORPUSCULAR VOLUME 94.7 fL (81-99); MONOCYTES % 10.2 % (4.4-11.3); NEUTROPHILS % 63.8 % (38.7-80.0); PLATELET COUNT 227 x10e3/uL (140-360); RED BLOOD COUNT 4.76 x10e6/uL (4.3-5.7); RED CELL DISTRIBUTION WIDTH 13.5 % (11.7-14.4)
[2021-06-30 05:28] LABS: ANION GAP 16.1 mmol/L (8-16); CALCIUM 8.3 mg/dL (8.4-10.2); CHOL/HDL RATIO 3.8 (3.9-4.7); CREATININE, SERUM 1.24 mg/dL (0.72-1.25); POTASSIUM 4.1 mmol/L (3.5-5.1)
[2021-06-30 07:24] LABS: CREATINE KINASE MB 1.3 ng/mL (0-5.0)
[2021-06-30 08:05] VITALS: BP 113/64
[2021-06-30 08:06] VITALS: BP 113/64
[2021-06-30] MEDS ORDERED: AMIODARONE HCL 200 MG TAB PO SCH (09:00)
[2021-06-30] MEDS ORDERED: LOSARTAN POTASSIUM 25 MG TAB PO SCH (09:00)
[2021-06-30] MEDS ORDERED: FINASTERIDE 5 MG TAB PO SCH (09:00)
[2021-06-30] MEDS ORDERED: METOPROLOL TARTRATE 25 MG TAB PO SCH (09:00)
[2021-06-30] MEDS ORDERED: ASPIRIN 81 MG ENTERIC COATED PO SCH (09:00)
[2021-06-30] MEDS ORDERED: AMIODARONE HCL200 MG PO (09:45)
[2021-06-30] MEDS ORDERED: REGADENOSON 0.4 MG/5 ML SYR IV ONE (10:22)
[2021-06-30 12:32] VITALS: BP 142/80
[2021-06-30 16:49] VITALS: BP 104/86
[2021-06-30] MEDS ORDERED: RIVAROXABAN 20 MG TABLET PO SCH (17:00)
== END 2021-06-30 18:52 | disposition home or self-care (01) ==
LOC: ER 10:02 → ERHOLD 10:34 → MED/SURG2 14:50
PROVIDERS: ADMIT Internal Medicine; ATTEND Internal Medicine
DX: R07.89 Other chest pain (principal); R00.1 Bradycardia, unspecified; I48.0 Paroxysmal atrial fibrillation; Z79.01 Long term (current) use of anticoagulants; I10 Essential (primary) hypertension; K21.9 Gastro-esophageal reflux disease without esophagitis; R73.9 Hyperglycemia, unspecified; Z20.822 Contact with and (suspected) exposure to COVID-19
CPT/HCPCS: 36415; 71045; 78452; 80048; 80053; 80061; 82550; 82553; 82948; 83880; 84484; 85025; 93005; 93017; 93306; 99284; A9502; G0378; U0002

== ENCOUNTER 2022-06-16 10:15 | Emergency (ER) | payer MEDICARE, OTHER ==
[~2022-06-16] VITALS: Ht 167.6 cm; Wt 68.9 kg
[~2022-06-16 10:15] MED LIST changes: +CYCLOBENZAPRINE10 MG PO
[2022-06-16] MEDS ORDERED: SODIUM CHLORIDE 0.9% 1000ML 1,000 ML IV STA (10:18)
[2022-06-16] MEDS ORDERED: DICYCLOMINE HCL 20 MG/2 ML VIAL IM ONE (10:30)
[2022-06-16] MEDS ORDERED: ONDANSETRON HCL INJ 2MG/ML 2ML 2 MG/ML VIAL IV PRN (10:30)
[2022-06-16 11:23] LABS: BASOPHILS # (AUTO) 0.1 (0.0-0.1); BASOPHILS % 0.5 % (0.0-1.0); EOSINOPHILS % 0.4 % (0.0-6.0); HEMATOCRIT 46.9 % (38.2-49.6); HEMOGLOBIN 15.6 g/dL (14.0-18.0); LYMPHOCYTES # (AUTO) 2.3 (1.0-3.2); LYMPHOCYTES % 23.1 % (18.0-39.1); MEAN CORPUSCULAR HEMOGLOBIN 30.5 pg (28-32); MEAN CORPUSCULAR HGB CONC 33.3 g/dL (31-35); MEAN CORPUSCULAR VOLUME 91.8 fL (81-99); MONOCYTES % 9.9 % (4.4-11.3); NEUTROPHILS # (AUTO) 6.5 (2.1-6.9); NEUTROPHILS % 65.7 % (38.7-80.0); PLATELET COUNT 291 x10e3/uL (140-360); RED BLOOD COUNT 5.11 x10e6/uL (4.3-5.7); RED CELL DISTRIBUTION WIDTH 13.1 % (11.7-14.4)
[2022-06-16 11:44] LABS: ALBUMIN 3.7 g/dL (3.5-5.0); ALBUMIN/GLOBULIN RATIO 0.9 (0.8-2.0); ANION GAP 16.3 mmol/L (8-16); CALCIUM 8.4 mg/dL (8.4-10.2); CREATININE, SERUM 1.22 mg/dL (0.72-1.25); POTASSIUM 4.3 mmol/L (3.5-5.1)
[2022-06-16 12:41] LABS: CLARITY,URINE CLEAR (CLEAR); COLOR,URINE YELLOW (YELLOW)
[2022-06-16 12:42] LABS: KETONES,URINE NEGATIVE (NEGATIVE); LEUKOCYTE ESTERASE ,URINE TRACE (NEGATIVE); NITRITE,URINE NEGATIVE (NEGATIVE); PROTEIN,URINE DIPSTICK NEGATIVE (NEGATIVE); URINE UROBILINOGEN 0.2 mg/dL (0.2 - 1)
[2022-06-16 12:48] LABS: BACTERIA,URINE FEW /HPF; EPITHELIAL CELLS,URINE FEW /LPF
[2022-06-16] MEDS ORDERED: IOPAMIDOL 370 MG/ML 100 ML INFUS..BTL INJ ONE (12:55)
[2022-06-16] MEDS ORDERED: DICYCLOMINE HCL20 MG PO (14:02)
== END 2022-06-16 14:35 | disposition home or self-care (01) ==
LOC: ER 10:19
DX: R10.30 Lower abdominal pain, unspecified (principal); R11.0 Nausea; I10 Essential (primary) hypertension; I48.91 Unspecified atrial fibrillation; K21.9 Gastro-esophageal reflux disease without esophagitis; Z87.442 Personal history of urinary calculi
CPT/HCPCS: 0223U; 36415; 74177; 80053; 81001; 83690; 84484; 85025; 93005; 99284; J0500; J2405; J7030; Q9967